=== PATIENT | male | born 1935 | race Caucasian/White ===

== ENCOUNTER 2016-12-03 09:23 | Inpatient (IN) | payer MEDICARE, OTHER ==
[2016-12-03 10:20] LABS: Hematocrit 44 % (42-52); Hemoglobin 15.4 g/dl (14.0-18.0); Mean Corpuscular HGB Conc 35 g/dl (31-36); Mean Corpuscular Hemoglobin 31 pg (27-31); Mean Corpuscular Volume 90 fL (80-94); Red Cell Distribution Width 14 % (10.5-15); White Blood Count 9.9 10^3/ul (3.5-10.8)
[2016-12-03 10:23] LABS: Comments Flag Yes
[2016-12-03 10:30] LABS: Add Diff/Slide Review? Slide Review Added
--- NOTE | 2016-12-03 10:32 | RAD ---
Indication: Nosebleed, hemoptysis. Single frontal view of the chest performed at 0950 hours was reviewed. No prior study is available for comparison.. No mediastinal shift is noted. Heart is of normal size and configuration. Lung desai appear clear. IMPRESSION: NO ACTIVE CARDIOPULMONARY DISEASE IS NOTED.
[2016-12-03 10:36] LABS: Albumin 4.3 g/dL (3.2-5.2); BUN/Creatinine Ratio 20.8 (8-20); Calcium 9.2 mg/dL (8.6-10.3); EGFR Non-African American 70.7 (>60); Potassium 4.2 mmol/L (3.5-5.0); Total Protein 7.3 g/dL (6.4-8.9)
[2016-12-03] MEDS ORDERED: diPHENhydraMINE PO* 25 MG PO ONE (11:37)
[2016-12-03] MEDS ORDERED: Acetaminophen TAB* 325 MG PO PRN (11:37)
--- NOTE | 2016-12-03 12:36 | ED ---
Rodrick Hammond Benjamin, scribed for Manohar Gerber MD on 12/03/16 at 1026 . Throat Pain/Nasal Congestion - HPI Summary HPI Summary: 81yo male who started having left epistaxis since this morning. Pt noted having blisters on tongue since Thursday and was put on steroid yesterday for low platelet count. No CP or SOB. - History of Current Complaint Chief Complaint: EDEpistaxis Time Seen by Provider: 12/03/16 09:28 Hx Obtained From: Patient Onset/Duration: Sudden Onset, Lasting Hours, Still Present Severity: Mild Cough: None - Allergies/Home Medications Allergies/Adverse Reactions: Allergies Allergy/AdvReac Type Severity Reaction Status Date / Time No Known Drug Allergy Allergy none Verified 12/03/16 09:29 PMH/Surg Hx/FS Hx/Imm Hx Cardiovascular History: Reports: Hx Hypertension GI History: Reports: Other GI Disorders - Hernia Sensory History: Reports: Hx Cataracts - Family History Known Family History: Positive: Hypertension Negative: Cardiac Disease, Diabetes - Social History Occupation: Retired Alcohol Use: Occasionally Substance Use Type: Reports: None Smoking Status (MU): Never Smoked Tobacco Review of Systems Constitutional: Negative Eyes: Negative Positive: Epistaxis - left Cardiovascular: Negative Negative: Chest Pain Respiratory: Negative Negative: Shortness Of Breath Gastrointestinal: Negative Genitourinary: Negative Musculoskeletal: Negative Skin: Negative Neurological: Negative Psychological: Normal All Other Systems Reviewed And Are Negative: Yes Physical Exam Triage Information Reviewed: Yes Vital Signs On Initial Exam: Initial Vitals Temp Pulse Resp BP Pulse Ox 97.5 F 70 15 167/100 98 12/03/16 10:55 12/03/16 10:55 12/03/16 10:55 12/03/16 10:55 12/03/16 10:55 Vital Signs Reviewed: Yes Skin: Positive: Warm, Dry, Other - diffuse Petechiae Head/Face: Positive: Normal Head/Face Inspection Eyes: Positive: Normal ENT: Positive: Other - little blood in left nare; blisters on tongue Neck: Positive: Supple, Nontender Respiratory/Lung Sounds: Positive: Clear to Auscultation, Breath Sounds Present Cardiovascular: Positive: RRR Abdomen Description: Positive: Nontender, No Organomegaly, Soft Bowel Sounds: Positive: Present Musculoskeletal: Positive: Normal, Strength/ROM Intact Neurological: Positive: Normal, Sensory/Motor Intact, Alert, Oriented to Person Place, Time, CN Intact II-III Psychiatric: Positive: Normal, Affect/Mood Appropriate Diagnostics - Vital Signs Vital Signs Temp Pulse Resp BP Pulse Ox 12/03/16 10:55 97.5 F 70 15 167/100 98 - Laboratory Lab Results: Lab Results 12/03/16 Range/Units 09:47 Blood Type Pending Antibody Screen Pending Result Diagrams: 12/03/16 10:03 12/03/16 10:03 Lab Statement: Any lab studies that have been ordered have been reviewed, and results considered in the medical decision making process. - Radiology CXR Xray Interpretation: No Acute Changes Radiology Interpretation Completed By: Radiologist - EKG 1009. Cardiac Rate: NL - 70bpm. EKG Interpretation: sinus arrthymia with VA of 285. Inverted T waves on lateral leads. EENT Course/Dx - Course Assessment/Plan: DR BLANKENSHIP SAW PATIENT IN ED AND ADMITTED HIM STABLE - Diagnoses Provider Diagnoses: Acute ITP - Provider Notifications Discussed Care of Patient with: Dr. Blankenship (Oncologist, Dope Pourer) @1010, @ 1058. Instructed by Provider To: Admit As Inpatient Discharge - Discharge Plan Condition: Stable Disposition: ADMITTED TO [facility] The documentation as recorded by the Rodrick fish Benjamin accurately reflects the service I personally performed and the decisions made by me, Manohar Gerber MD.
[2016-12-03 16:53] LABS: Comments Flag Yes; Hematocrit 43 % (42-52); Hemoglobin 14.5 g/dl (14.0-18.0); Mean Corpuscular HGB Conc 34 g/dl (31-36); Mean Corpuscular Hemoglobin 31 pg (27-31); Mean Corpuscular Volume 91 fL (80-94); Mean Platelet Volume 8 um3 (7.4-10.4); Red Blood Count 4.74 10^6/ul (4.0-5.4); Red Cell Distribution Width 13 % (10.5-15); White Blood Count 11.7 10^3/ul (3.5-10.8)
[2016-12-03] MEDS: IMMUNE GLOBULN IV SCH (18:00)
[2016-12-03] MEDS: Saline FLUSH-PERIPHERAL* 10 ML SYRINGE PERIPH SCH ×2 (18:23→21:29)
--- NOTE | 2016-12-03 18:29 | HP ---
HISTORY AND PHYSICAL: DATE OF ADMISSION: 12/03/16 REASON FOR ADMISSION: Thrombocytopenia and epistaxis. HISTORY OF PRESENT ILLNESS: An 81-year-old male generally healthy. Thursday evening, he was eating a pork chop and noted a blood blister on his tongue. He did not think much of it. The next day on Thursday, he had 3 to 4 blood spots on his tongue. He went to see Dr. Castillo, Family [facility] at [facility] and was sent to [place] for wildlife veterinarian down at [place]. He was seen yesterday and had extensive blood work done. He was started on dexamethasone 4 mg p.o. daily for 4 days. He took the pills yesterday evening and then took them again this morning. This morning, he subsequently developed nosebleed and went to the [facility] Emergency Room. On presentation, he had a platelet count of 6. He was sent to [facility] and has a platelet count of 2. He otherwise reports feeling well. No recent illness, no fevers, chills, or night sweats, energy has been good, no shortness of breath, chest pain, palpitations, hematuria, change in bowel function. He has noted red spots along his arms and legs. PAST MEDICAL HISTORY: 1. Hypertension. 2. Osteoarthritis. PAST SURGICAL HISTORY: Hernia repair x2. MEDICATIONS: 1. Benicar, he believes 40 mg a day. 2. Metoprolol 100 mg a day. 3. Tylenol twice a day for arthritis. ALLERGIES: None. FAMILY HISTORY: No real illnesses run in his family, no problems with blood disease. 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 He is . He has one stepchild. He drinks occasionally. He smoked until 12 years ago and stopped. He remains very active. REVIEW OF SYSTEMS: As noted above, otherwise 14-point review is negative. PHYSICAL EXAMINATION VITAL SIGNS: Temperature 97.5, BP 167/100, respirations 15, pulse 70, sat 98%. HEENT: He has epistaxis, several blood vessels on his tongue. No other oral mucosal ecchymosis. NECK: No cervical or supraclavicular lymphadenopathy. LUNGS: Clear to auscultation bilaterally. HEART: Regular rhythm. S1, S2. No murmurs, rubs or gallops. ABDOMEN: No spleen. Good bowel sounds, nontender, nondistended. SKIN: Multiple bruises from his IV site. He has diffuse petechiae in both legs , both arms. NEUROLOGIC: Alert and oriented x3, nonfocal. Normal speech pattern. Normal affect. NODES: No peripheral lymphadenopathy. DIAGNOSTIC/LABORATORY DATA: He has a hemoglobin 15.4, MCV 90, white count 9.9 , platelet count of 2000, and the differential is 94% neutrophils. Review of manual blood film shows normal red blood cell morphology, no evidence of microangiopathic hemolysis. He has normal white blood cells and I could not find any platelets to review. Chemistry show creatinine 1.01, glucose slightly elevated at 252. Normal LFTs, albumin. He has normal PT, PTT. Chest x-ray is negative. ASSESSMENT AND PLAN: An 81-year-old male comes in with marked thrombocytopenia. 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 Based on starting dexamethasone 40 mg daily, I suspect this was the conclusion of the wildlife veterinarian he saw as an outpatient. Given the degree of thrombocytopenia as well as epistaxis, he needs to be admitted to the hospital. 1. We will give 1 unit of single donor platelets now and recheck the platelet count at 4 p.m. Re-transfuse if necessary. 2. IVIG, Gammagard, 1000 mg per kilogram IV daily x2. 3. He took 2 days of dexamethasone, continue dexamethasone tomorrow and Thursday. 4. Discuss long-term outcome with idiopathic thrombocytopenic purpura. Two- thirds of patients respond to initial therapy, one-third will have a long-term response, all other patients need to go on to either rituximab or splenectomy. 5. Mildly elevated glucose, from dexamethasone and we will follow. 6. Continue his metoprolol and hold the Benicar for hypertension. We will follow blood pressure. 7. No deep vein thrombosis prophylaxis given thrombocytopenia. Start with platelet count over 50,000. 8. We will continue his MiraLAX and his Tylenol. We will give Tylenol and Benadryl for IVIG. 9. Check urinalysis for hematuria. He will be followed in the hospital and then discharged when the platelet count is stabilized, followup needs to be with us or with the wildlife veterinarian down at [place]. CC: Dr. Castillo* [id number]/[facility] #: [id number] [facility]
[2016-12-03] MEDS ORDERED: Polyethylene Glycol 3350* 17 GM PACKET PO PRN (20:00)
[2016-12-03] MEDS: traZODone TAB* 50 MG TAB PO SCH (21:55)
[2016-12-04] MEDS: Saline FLUSH-PERIPHERAL* 10 ML SYRINGE PERIPH SCH ×3 (04:40→23:54)
[2016-12-04 06:35] LABS: Hematocrit 36 % (42-52); Hemoglobin 12.2 g/dl (14.0-18.0); Mean Corpuscular HGB Conc 34 g/dl (31-36); Mean Corpuscular Hemoglobin 31 pg (27-31); Mean Corpuscular Volume 92 fL (80-94); Mean Platelet Volume 11 um3 (7.4-10.4); Red Blood Count 3.87 10^6/ul (4.0-5.4); Red Cell Distribution Width 13 % (10.5-15); White Blood Count 12.1 10^3/ul (3.5-10.8)
[2016-12-04 06:36] LABS: Comments Flag Yes
[2016-12-04 06:44] LABS: Albumin 3.3 g/dL (3.2-5.2); BUN/Creatinine Ratio 34.2 (8-20); Calcium 8.4 mg/dL (8.6-10.3); EGFR African American 120.8 (>60); EGFR Non-African American 93.9 (>60); Globulin 4.2 g/dL (2-4); Total Bilirubin 0.8 mg/dL (0.2-1.0); Total Protein 7.5 g/dL (6.4-8.9)
[2016-12-04] MEDS: Dexamethasone TAB* 4 MG PO SCH (09:37)
[2016-12-04] MEDS: Metoprolol Succinate XL TAB* 100 MG PO SCH (09:40)
--- NOTE | 2016-12-04 09:58 | PN ---
Progress Note - Progress Note SOAP: Subjective: [Had a bloody nose lastr night.placed tissue in left nare which stopped .Denies SOB or carmina pain.Denies fever or chills,headaches ,neurofocal sxms.] Objective: [Heent -left nare Lungs -clear after deep cough COR- RRR Abdomen-+bs X quads, soft, NT EXT- scatered petechia BLE neuro - no focal defecits Allergies No Known Drug Allergy Allergy (Verified 12/03/16 09:29) none Vital Signs 12/03/16 12/03/16 12/03/16 10:55 13:10 13:20 Temperature 97.5 F 97.3 F 97.3 F Pulse Rate 70 74 74 Respiratory 15 18 Rate Blood Pressure 167/100 190/92 (mmHg) O2 Sat by Pulse 98 100 100 Oximetry 12/03/16 12/03/16 12/03/16 14:50 15:05 15:50 Temperature 98.3 F 98.1 F 98.4 F Pulse Rate 80 74 72 Respiratory 16 16 16 Rate Blood Pressure 153/79 140/85 151/75 (mmHg) O2 Sat by Pulse 98 100 Oximetry 12/03/16 12/03/16 12/03/16 16:51 17:49 17:56 Temperature 97.5 F Pulse Rate 82 Respiratory 16 16 Rate Blood Pressure 175/111 178/94 (mmHg) O2 Sat by Pulse 100 Oximetry 12/03/16 12/03/16 12/03/16 18:18 18:29 18:35 Temperature 97.7 F 98.1 F Pulse Rate 78 89 Respiratory 16 16 16 Rate Blood Pressure 170/88 170/78 (mmHg) O2 Sat by Pulse 99 98 Oximetry 12/03/16 12/03/16 12/03/16 18:50 18:51 19:10 Temperature 98.2 F 98.6 F Pulse Rate 88 89 Respiratory 16 18 16 Rate Blood Pressure 178/106 175/103 (mmHg) O2 Sat by Pulse 98 98 Oximetry 12/03/16 12/03/16 12/03/16 19:30 19:45 20:00 Temperature 98.8 F 98.8 F Pulse Rate 88 84 Respiratory 18 18 18 Rate Blood Pressure 155/98 174/78 (mmHg) O2 Sat by Pulse 98 97 Oximetry 12/03/16 12/03/16 12/03/16 20:05 20:25 20:45 Temperature 98.6 F 98.1 F 98 F Pulse Rate 83 80 76 Respiratory 18 18 18 Rate Blood Pressure 178/82 178/88 168/80 (mmHg) O2 Sat by Pulse 98 97 96 Oximetry 12/03/16 12/03/16 12/03/16 21:05 21:25 21:50 Temperature 98 F 98.4 F 98.4 F Pulse Rate 75 75 78 Respiratory 18 18 18 Rate Blood Pressure 178/84 174/82 175/84 (mmHg) O2 Sat by Pulse 96 96 97 Oximetry 12/03/16 12/03/16 12/03/16 22:15 22:35 22:55 Temperature 98.2 F 98.3 F 98.1 F Pulse Rate 76 72 69 Respiratory 18 18 18 Rate Blood Pressure 174/90 174/82 172/80 (mmHg) O2 Sat by Pulse 95 96 96 Oximetry 12/03/16 12/03/16 12/04/16 23:15 23:40 00:00 Temperature 98.2 F 98.1 F 98 F Pulse Rate 73 65 75 Respiratory 18 18 18 Rate Blood Pressure 178/82 176/90 170/80 (mmHg) O2 Sat by Pulse 96 96 98 Oximetry 12/04/16 12/04/16 12/04/16 02:39 04:08 07:37 Temperature 97.2 F Pulse Rate 72 81 Respiratory 16 18 Rate Blood Pressure 151/87 171/94 (mmHg) O2 Sat by Pulse 98 97 100 Oximetry ] Laboratory Results - last 24 hr 12/03/16 12/03/16 12/03/16 09:47 10:03 10:03 WBC 9.9 RBC 4.90 Hgb 15.4 Hct 44 MCV 90 MCH 31 MCHC 35 RDW 14 Plt Count 2 L* MPV Neut % (Auto) 93.4 H Lymph % (Auto) 6.2 L [place] % (Auto) 0.3 L Eos % (Auto) 0 Baso % (Auto) 0.1 Absolute Neuts (auto) 9.3 H Absolute Lymphs (auto) 0.6 L Absolute Monos (auto) 0 Absolute Eos (auto) 0 Absolute Basos (auto) 0 Absolute Nucleated RBC 0 Nucleated RBC % 0 Hem Pathologist Commnt INR (Anticoag Therapy) 1.02 APTT 27.3 Sodium Potassium Chloride Carbon Dioxide Anion Gap BUN Creatinine Est GFR ( Amer) Est GFR (Non-Af Amer) BUN/Creatinine Ratio Glucose Calcium Total Bilirubin AST ALT Alkaline Phosphatase Lactate Dehydrogenase Total Protein Albumin Globulin Albumin/Globulin Ratio Vitamin B12 Blood Type A Negative Antibody Screen Negative 12/03/16 12/03/16 12/04/16 10:03 16:35 05:41 WBC 11.7 H RBC 4.74 Hgb 14.5 Hct 43 MCV 91 MCH 31 MCHC 34 RDW 13 Plt Count 16 L MPV 8 Neut % (Auto) 88.5 H Lymph % (Auto) 9.0 L [place] % (Auto) 2.4 Eos % (Auto) 0 Baso % (Auto) 0.1 Absolute Neuts (auto) 10.4 H Absolute Lymphs (auto) 1.1 Absolute Monos (auto) 0.3 Absolute Eos (auto) 0 Absolute Basos (auto) 0 Absolute Nucleated RBC 0.01 Nucleated RBC % 0.1 Hem Pathologist Commnt INR (Anticoag Therapy) APTT Sodium 135 131 L Potassium 4.2 4.0 Chloride 101 102 Carbon Dioxide 23 24 Anion Gap 11 5 BUN 21 27 H Creatinine 1.01 0.79 Est GFR ( Amer) 91.0 120.8 Est GFR (Non-Af Amer) 70.7 93.9 BUN/Creatinine Ratio 20.8 H 34.2 H Glucose 252 H 199 H Calcium 9.2 8.4 L Total Bilirubin 1.00 0.80 AST 22 21 ALT 20 19 Alkaline Phosphatase 38 33 L Lactate Dehydrogenase 238 Total Protein 7.3 7.5 Albumin 4.3 3.3 Globulin 3.0 4.2 H Albumin/Globulin Ratio 1.4 0.8 L Vitamin B12 521 Blood Type Antibody Screen 12/04/16 05:44 WBC 12.1 H RBC 3.87 L Hgb 12.2 L Hct 36 L MCV 92 MCH 31 MCHC 34 RDW 13 Plt Count 5 L* D MPV 11 H Neut % (Auto) 84.5 H Lymph % (Auto) 9.2 L [place] % (Auto) 6.2 Eos % (Auto) 0 Baso % (Auto) 0.1 Absolute Neuts (auto) 10.2 H Absolute Lymphs (auto) 1.1 Absolute Monos (auto) 0.7 Absolute Eos (auto) 0 Absolute Basos (auto) 0 Absolute Nucleated RBC 0 Nucleated RBC % 0 Hem Pathologist Commnt INR (Anticoag Therapy) APTT Sodium Potassium Chloride Carbon Dioxide Anion Gap BUN Creatinine Est GFR ( Amer) Est GFR (Non-Af Amer) BUN/Creatinine Ratio Glucose Calcium Total Bilirubin AST ALT Alkaline Phosphatase Lactate Dehydrogenase Total Protein Albumin Globulin Albumin/Globulin Ratio Vitamin B12 Blood Type Antibody Screen Assessment: [ITP -Contnue IVIG day 2 and steroids Watch for signs of bleeding HTN-continue meds Watch BS FEN -continue same diet] Plan: [As above Spent 15minutes discussing options of care ; initial treatment ,splenectomy, Rituxan ,etc. Cautioned pt. re signs of bleeding ]
[2016-12-04 11:05] LABS: Urine Bacteria Absent (Absent); Urine Bilirubin Negative (Negative); Urine Glucose 3+(>=500 mg/dL) (Negative); Urine Nitrite Negative (Negative)
[2016-12-04] MEDS: IMMUNE GLOBULN IV SCH (13:59)
[2016-12-04] MEDS ORDERED: OLMESARTAN 5 MG PO SCH (14:00)
[2016-12-04] MEDS: traZODone TAB* 50 MG TAB PO SCH (20:38)
[2016-12-04] MEDS ORDERED: amLODIPine TAB* 5 MG PO ONE (21:00)
[2016-12-05] MEDS: Saline FLUSH-PERIPHERAL* 10 ML SYRINGE PERIPH SCH ×3 (04:30→20:49)
[2016-12-05 06:30] LABS: Hematocrit 38 % (42-52); Hemoglobin 12.9 g/dl (14.0-18.0); Mean Corpuscular HGB Conc 34 g/dl (31-36); Mean Corpuscular Hemoglobin 31 pg (27-31); Mean Corpuscular Volume 92 fL (80-94); Mean Platelet Volume 10 um3 (7.4-10.4); Red Cell Distribution Width 13 % (10.5-15); White Blood Count 11.7 10^3/ul (3.5-10.8)
[2016-12-05 06:31] LABS: Comments Flag Yes
[2016-12-05 07:09] LABS: Albumin 3.6 g/dL (3.2-5.2); BUN/Creatinine Ratio 27.4 (8-20); Calcium 9.2 mg/dL (8.6-10.3); EGFR African American 112.5 (>60); EGFR Non-African American 87.5 (>60); Globulin 6.5 g/dL (2-4); Potassium 4.1 mmol/L (3.5-5.0); Total Bilirubin 1.1 mg/dL (0.2-1.0); Total Protein 10.1 g/dL (6.4-8.9)
[2016-12-05] MEDS: Metoprolol Succinate XL TAB* 100 MG PO SCH (08:48)
[2016-12-05] MEDS: Valsartan TAB* 160 MG PO SCH (08:48)
[2016-12-05] MEDS: Dexamethasone TAB* 4 MG PO SCH (08:48)
--- NOTE | 2016-12-05 09:18 | PN ---
Progress Note - Progress Note SOAP: Subjective: []Better. Bruising and bleeding stopped, feels like is getting better. No difficulty with IVIG or steroids. Acetaminophen (Tylenol Tab*) 650 mg PO Q6H PRN PRN Reason: PAIN Last Admin: 12/03/16 16:52 Dose: 650 mg Dexamethasone (Decadron Tab*) 40 mg PO DAILY ELAINE Stop: 12/05/16 23:59 Last Admin: 12/05/16 08:48 Dose: 40 mg Metoprolol Succinate (Toprol Xl Tab*) 100 mg PO DAILY ELAINE Last Admin: 12/05/16 08:48 Dose: 100 mg Polyethylene Glycol/Electrolytes (Miralax*) 17 gm PO DAILY PRN PRN Reason: CONSTIPATION Sodium Chloride ( Peripheral Saline Flush*) 10 ml PERIPH Q8H ELAINE Last Admin: 12/05/16 04:30 Dose: 10 ml Trazodone HCl (Desyrel Tab*) 50 mg PO BEDTIME ELAINE Last Admin: 12/04/16 20:38 Dose: 50 mg Valsartan (Diovan Tab*) 320 mg PO DAILY ELAINE PRN Reason: Protocol Last Admin: 12/05/16 08:48 Dose: 320 mg Objective: [] Vital Signs Temp Pulse Resp BP Pulse Ox 97.6 F 58 16 189/85 98 12/04/16 23:56 12/04/16 23:56 12/04/16 23:56 12/04/16 23:56 12/04/16 23:56 HEENT - no epistaxis. No packing. Still blisters oral mucosa. CTA RRR S1S2 +BS, NT/ND Skin looks better, no fresh bruising. Assessment: []ITP improved after steroids and IVIG. He is feeling better Plan: []1. Follow one additional day and DC tomorrow assuming further rise in placates. 2. Hold Bhanu Perezc for HTN
[2016-12-05] MEDS ORDERED: Furosemide TAB* 20 MG PO ONE (09:19)
[2016-12-05] MEDS: traZODone TAB* 50 MG TAB PO SCH (20:49)
[2016-12-06] MEDS: Saline FLUSH-PERIPHERAL* 10 ML SYRINGE PERIPH SCH ×2 (05:39→11:19)
[2016-12-06 07:55] VITALS: BP 186/96
[2016-12-06] MEDS: Valsartan TAB* 160 MG PO SCH (07:57)
[2016-12-06] MEDS: Metoprolol Succinate XL TAB* 100 MG PO SCH (07:57)
[2016-12-06 08:40] LABS: Hematocrit 39 % (42-52); Hemoglobin 13.7 g/dl (14.0-18.0); Mean Corpuscular HGB Conc 35 g/dl (31-36); Mean Corpuscular Hemoglobin 31 pg (27-31); Mean Corpuscular Volume 89 fL (80-94); Mean Platelet Volume 10 um3 (7.4-10.4); Red Blood Count 4.41 10^6/ul (4.0-5.4); Red Cell Distribution Width 13 % (10.5-15); White Blood Count 12.4 10^3/ul (3.5-10.8)
[2016-12-06 08:42] LABS: Comments Flag Yes
--- NOTE | 2016-12-06 09:06 | PN ---
Progress Note - Progress Note SOAP: DISCHARGE NOTE Subjective: []Doing well and no more bruising, feels great. Ready to go home. Walking well, has BM, no SOB and no fever. Acetaminophen (Tylenol Tab*) 650 mg PO Q6H PRN PRN Reason: PAIN Last Admin: 12/03/16 16:52 Dose: 650 mg Metoprolol Succinate (Toprol Xl Tab*) 100 mg PO DAILY ELAINE Last Admin: 12/06/16 07:57 Dose: 100 mg Polyethylene Glycol/Electrolytes (Miralax*) 17 gm PO DAILY PRN PRN Reason: CONSTIPATION Sodium Chloride ( Peripheral Saline Flush*) 10 ml PERIPH Q8H ELAINE Last Admin: 12/06/16 05:39 Dose: Not Given Trazodone HCl (Desyrel Tab*) 50 mg PO BEDTIME ELAINE Last Admin: 12/05/16 20:49 Dose: 50 mg Valsartan (Diovan Tab*) 320 mg PO DAILY ELAINE PRN Reason: Protocol Last Admin: 12/06/16 07:57 Dose: 320 mg Objective: [] Vital Signs Temp Pulse Resp BP Pulse Ox 97.4 F 72 16 186/96 100 12/06/16 07:40 12/06/16 07:40 12/06/16 07:59 12/06/16 07:40 12/06/16 07:40 HEENT - mucosa moist, healing CTA RRR S1S2 BS+, NT ND Skin improved, no new bruising. Laboratory Results - last 24 hr 12/06/16 08:30 WBC 12.4 H RBC 4.41 Hgb 13.7 L Hct 39 L MCV 89 MCH 31 MCHC 35 RDW 13 Plt Count 50 L D MPV 10 Neut % (Auto) 84.3 H Lymph % (Auto) 8.9 L [place] % (Auto) 6.6 Eos % (Auto) 0 Baso % (Auto) 0.2 Absolute Neuts (auto) 10.5 H Absolute Lymphs (auto) 1.1 Absolute Monos (auto) 0.8 Absolute Eos (auto) 0 Absolute Basos (auto) 0 Absolute Nucleated RBC 0 Nucleated RBC % 0 Assessment: []ITP and platlets are 50,000 post IVIG and Prednisone. HTN second to steroids and IVIG Plan: []1. D/C home 2. Continue home medications 3. Follow up Hematology at [place] on Thursday
--- NOTE | 2016-12-06 12:54 | DS ---
DISCHARGE SUMMARY: DATE OF ADMISSION: 12/03/16 DATE OF DISCHARGE: 12/06/16 DISCHARGE DIAGNOSES: 1. Idiopathic thrombocytopenia with severe thrombocytopenia. 2. Hypertension. HOSPITAL COURSE: Presented to the emergency room after initially presenting at [place] with a platelet count of 2000. He had epistaxis, oral mucosal bleeding , and diffuse bruising and petechia. Past medical history significant only for hypertension. He had been seen for thrombocytopenia several days earlier by road marker at [place] and started on dexamethasone 40 mg p.o. daily for 4 days , presumably ITP. His CBC showed marked thrombocytopenia and was otherwise unremarkable. Manual blood count showed normal white blood cell and red blood cell morphology, slight leukocytosis attribute to use of dexamethasone. We could not find platelets to evaluate platelet morphology. He was admitted and continued on his 4 days of dexamethasone, which was completed yesterday. He was given IVIG with Gammagard 1 g/kg IV daily for 2 days. He was transfused one unit of platelets for the platelet count of 2000. He bumped to 16,000 after the transfusion and back down to 5000 on 12/04/16, had a second day of Gammagard, third day of dexamethasone and on 12/05/16 [place] [address], today 50,000. Feels great, bruising is gone, now feels better. Course complicated by hypertension, but his Benicar had been held that attribute that to the steroids and the IVIG. DISCHARGE MEDICATIONS: 1. He will continue metoprolol 50 mg b.i.d. 2. Benicar 40 mg daily. FOLLOWUP: Followup will be in [address] marker down at [place] and I instructed him to see Dr. Castillo early next week as well. No followup is scheduled thus at this time, as his road marker in [place] is more convenient for him. We are happy to see him anytime in the future if we can help. CC: Dr. Castillo * [id number]/[facility] #: [id number] [facility]
== END 2016-12-06 11:30 | disposition home or self-care (01) | DRG 813 ==
LOC: ED 09:23 → MED 11:31
PROVIDERS: ADMIT Internal Medicine Hematology & Oncology; ATTEND Internal Medicine Hematology & Oncology
PROC: 3E033WL Introduction of Immunosuppressive into Peripheral Vein, Percutaneous (ICD-10-PCS; principal; 2016-12-03)
PROC: 30233R1 Transfusion of Nonautologous Platelets into Peripheral Vein, Percutaneous Approach (ICD-10-PCS; 2016-12-03)
DX: D69.3 Immune thrombocytopenic purpura (principal); I10 Essential (primary) hypertension; D72.829 Elevated white blood cell count, unspecified; T38.0X5A Adverse effect of glucocorticoids and synthetic analogues, initial encounter; H26.9 Unspecified cataract; Z82.49 Family history of ischemic heart disease and other diseases of the circulatory system; M19.90 Unspecified osteoarthritis, unspecified site; Z87.891 Personal history of nicotine dependence; R73.9 Hyperglycemia, unspecified; T50.Z15A Adverse effect of immunoglobulin, initial encounter
CPT/HCPCS: 36415; 71010; 80053; 81003; 81015; 82607; 83615; 85025; 85060; 85610; 85730; 86850; 86900; 86901; 93005; 99223; 99232; 99238; A9270-GY; J1568; J8540; P9035

== ENCOUNTER 2019-02-17 16:46 | Inpatient (IN) | payer MEDICARE, OTHER ==
--- NOTE | 2019-02-17 17:25 | ED ---
Neurological HPI - HPI Summary HPI Summary: This patient is a 83 year old M transferred from [facility] via EMS to [facility] for a further evaluation of a stroke vs mass on CT. A few days ago he suffered a complete loss of vision, which has since alleviated, after he started taking a new medication for blood pressure. This morning at 09:00, he had complete loss of vision again for about an hour and presented to [place] ED. Patient also had an NH earlier this week and was seen at [facility]. No operation or procedures were done for this NH, per pt. His vision losses started after the NH. Patient denies headache currently, CP, dizziness, no vision changes currently. and SOB. No PMHx of kidney failure. Pt is vague about historical details. Records from [facility]. Pt was seen by RUPA Saldana at , and discussed care with Dr. Beth prior to transfer. Vital signs while in room: HR 66 bpm, BP 156/87, O2 sat 93%. Home Medications Medication Instructions Recorded Confirmed Type Metoprolol Tartrate TAB* 50 mg PO BID 12/03/16 02/17/19 History [Lopressor TAB*] Aspirin EC TAB* [Ecotrin EC Low 81 mg PO DAILY 02/17/19 02/17/19 History Dose 81 MG*] Atorvastatin* [Lipitor*] 40 mg PO BEDTIME 02/17/19 02/17/19 History Carvedilol TAB* [Coreg TAB*] 25 mg PO BID WITH MEALS 02/17/19 02/17/19 History Clopidogrel TAB* [Plavix TAB*] 75 mg PO DAILY 02/17/19 02/17/19 History Lisinopril TAB* [Prinivil TAB*] 10 mg PO DAILY 02/17/19 02/17/19 History Olmesartan (NF) [Benicar (NF)] 40 mg PO DAILY 02/17/19 02/17/19 History metFORMIN* [Glucophage 500 MG TAB 500 mg PO BID 02/17/19 02/17/19 History *] - History of Current Complaint Chief Complaint: EDNeurologicalDeficit Stated Complaint: STROKE LIKE SYMPTOMS PER EMS Time Seen by Provider: 02/17/19 17:00 Hx Obtained From: Patient, Medical Records - and RUPA Saldana from , Other: - Dr. Beth Onset/Duration: Sudden Onset, Started hours ago, Resolved Timing: Intermittent Episodes Lasting: - 1 hour Onset Severity: Moderate Current Severity: None Pain Intensity: 0 Pain Scale Used: 0-10 Numeric Character: Dizzy - Denies, Visual Changes - Intermittent loss of vision for hour -long episodes. No vision changes currently., Other: - Denies headache, CP, and SOB. Aggravating: Nothing Alleviating: Nothing Associated Signs and Symptoms: Positive: Nothing - no headache, chest pain, dizziness, SOB or visual symptoms at this time TPA Considered: No - outside TPA window - Additional Pertinent History Primary Care Physician: MARIA LUZ - Allergy/Home Medications Allergies/Adverse Reactions: Allergies Allergy/AdvReac Type Severity Reaction Status Date / Time No Known Allergies Allergy Verified 02/19/19 08:26 Home Medications: Home Medications Aspirin EC TAB* [Ecotrin EC Low Dose 81 MG*] 81 mg PO DAILY 02/17/19 [History Confirmed 02/17/19] Atorvastatin* [Lipitor 40 MG*] 40 mg PO BEDTIME 02/17/19 [History Confirmed ] Carvedilol TAB* [Coreg TAB*] 25 mg PO BID WITH MEALS 02/17/19 [History Confirmed 02/17/19] Lisinopril TAB* [Prinivil TAB 10 MG*] 10 mg PO DAILY 02/17/19 [History Confirmed 02/17/19] metFORMIN* [Glucophage 500 MG TAB *] 500 mg PO BID 02/17/19 [History Confirmed 02/17/19] PMH/Surg Hx/FS Hx/Imm Hx Previously Healthy: No Endocrine/Hematology History: Reports: Hx Diabetes - on no meds for DM pt states Cardiovascular History: Reports: Hx Hypertension, Hx Myocardial Infarction - 1 week ago per pt Respiratory History: Reports: Hx Chronic Obstructive Pulmonary Disease (COPD) - states his doctor said 20 years ago he had COPD but his doctor says he has GI History: Reports: Other GI Disorders - Hernia Musculoskeletal History: Reports: Hx Arthritis - in bilateral shoulders, takes tylenol bid Sensory History: Reports: Hx Contacts or Glasses - glasses Denies: Hx Cataracts - had cataract surgery a few years ago, he cant remember when, Hx Eye Injury, Hx Eye Prosthesis, Hx Glaucoma, Hx Legally Blind, Hx Macular Degeneration, Hx Vision Problem, Hx Deafness, Hx Hearing Aid, Hx Hearing Problem, Other Sensory Impairments Opthamlomology History: Reports: Hx Contacts or Glasses - glasses Denies: Hx Cataracts - had cataract surgery a few years ago, he cant remember when, Hx Eye Injury, Hx Eye Prosthesis, Hx Glaucoma, Hx Legally Blind, Hx Macular Degeneration, Hx Vision Problem, Other Sensory Impairments - Cancer History Cancer Type, Location and Year: skin cancer: had lesions removed on R shoulder and forehead - Surgical History Surgery Procedure, Year, and Place: bilateral inguinal hernia repair, he does not know when. bilateral cataract surgery Hx Anesthesia Reactions: No Infectious Disease History: No Infectious Disease History: Denies: Traveled Outside the [place] in Last 30 Days - Family History Known Family History: Positive: Hypertension Negative: Cardiac Disease, Diabetes - Social History Alcohol Use: Occasionally Substance Use Type: Reports: None Smoking Status (MU): Former Smoker Length of Time of Smoking/Using Tobacco: quit smoking 15 years ago\ Have You Smoked in the Last Year: No Review of Systems Constitutional: Negative Positive: Other - Intermittent complete loss of vision. Denies vision changes currently. Negative: Chest Pain Negative: Shortness Of Breath Gastrointestinal: Negative Positive: no symptoms reported Musculoskeletal: Negative Skin: Negative Neurological: Other - stroke vs mass on [facility] from [facility]. Denies dizziness. Negative: Headache Psychological: Normal All Other Systems Reviewed And Are Negative: Yes Physical Exam - Summary Physical Exam Summary: Appearance: Ill-appearing, no pain distress, well-nourished Skin: Warm, color reflects adequate perfusion, dry Head: Normal Head/Face inspection, atraumatic Eyes: Conjunctiva clear, PERRL, EOMI, no nystagmus, vision intact ENT: Normal inspection Neck: Supple, no nodes, no JVD Respiratory: Lungs clear, normal breath sounds, no respiratory distress Cardio: RRR, No murmur, pulses normal, brisk capillary refill Abdomen: Soft, nontender Bowel sounds: Present Musculoskeletal: Strength Intact/ROM intact, no calf tenderness, no edema. Psychological: Normal Neuro: NIH zero, pt alert Ox3 Triage Information Reviewed: Yes Vital Signs On Initial Exam: Initial Vitals Temp Pulse Resp BP Pulse Ox 99 F 67 18 156/87 95 02/17/19 16:53 02/17/19 16:53 02/17/19 16:53 02/17/19 16:53 02/17/19 16:53 Vital Signs Reviewed: Yes Diagnostics - Vital Signs Vital Signs Temp Pulse Resp BP Pulse Ox 02/17/19 16:53 99 F 67 18 156/87 95 - Laboratory Result Diagrams: 02/23/19 06:03 02/23/19 06:03 Lab Statement: Any lab studies that have been ordered have been reviewed, and results considered in the medical decision making process. - Radiology Chest X-Ray Radiology Interpretation Completed By: Radiologist Summary of Radiographic Findings: 22:27 - Right middle lobe infiltrate. Pending official report. - CT Head CTA CT Interpretation Completed By: Radiologist Summary of CT Findings: 18:33. 1. There is an abrupt thrombotic occlusion within the P1 segment of the left. posterior cerebral artery extending for a 3 mm length. There is reconstitution. distal to this. There is a second short segment occlusion in left P2 branch. peripheral to this. 2. There are corresponding low attenuation changes within the left occipital. lobe suggesting developing infarction. No hemorrhage is seen however the. presence of contrast could obscure small bleed. 3. Limited atherosclerosis elsewhere with no other documented occlusion or. flow-limiting lesion. ED Physician has reviewed this imaging report. - EKG 1 Cardiac Rate: NL - 63 BPM EKG Rhythm: Sinus Rhythm ST Segment: Non-Specific Ectopy: None EKG Comparison: No Significant Change - Compared with 12/03/2017 Summary of EKG Findings: First degree AV block. Normal IVCT. Normal QTc. Left axis (minus 21). Minimal ST elevation, V1 V2. Downsloping and inverting Ts V4- V6. Discussed this EKG with Dr. Angel Jesus. Not a STEMI. NIH Scale - NIH Scale Level of Consciousness: Alert/Keenly Responsive Ask Patient the Month and His/Her Age: Both Correct Ask Pt to Open/Close Eyes and Regional Sales Representative/Release Non-Paretic Hand: Both Correctly Best Gaze (Only Horizontal Eye Movement): Normal Visual Field Testing: No Visual Loss Facial Paresis-Pt to Smile & Close Eyes or Grimace Symmetry: Normal/Symmetrical Motor Function - Right Arm: No Drift-Holds 10 Seconds Motor Function - Left Arm: No Drift-Holds 10 Seconds Motor Function - Right Leg: No Drift-Holds 10 Seconds Motor Function - Left Leg: No Drift-Holds 10 Seconds Limb Ataxia-Must be out of Proportion to Weakness Present: Absent Sensory (Use Pinprick to Test Arms/Legs/Trunk/Face): Normal Best Language (Describe Picture, Name Items): No Aphasia Dysarthria (Read Several Words): Normal Extinction and Inattention: No Abnormality Total Score: 0 Re-Evaluation - Re-Evaluation 1 Re-Evaluation Time: 20:15 Change: Unchanged Comment: Updated the patient of my consultations up to this point. Vitals: HR 57 bpm, BP 103/67, O2 sat 92%. Course/Dx - Course Course Of Treatment: Patient presented with bilateral blindness onset this morning at 09:00. [facility] CT shows stroke vs mass. Sent for CTA under code conditions. Aware of troponin 0.04 at 18:50. Dr. Beth consulted upon pt's arrival. Telestroke consult, Dr. Doherty agrees no TPA. Dr. Doherty recommended neurosurgical interventional consult. Dr. Goldsmith at [facility], states pt is not an interventional candidate. Pt had reported recent NH hospitalized at [facility]. EKG done in ED discussed with Dr. Angel Jesus, not a STEMI. Dr. Jordan admitted the pt. - Differential Dx Differential Diagnoses Neuro: Positive: Cerebrovascular Accident, Intracranial Bleed, Metastatic Disease, Transient Ischemic Attack - Diagnoses Provider Diagnoses: Stroke, Pneumonia - Physician Notifications Discussed Care Of Patient With: Tre Doherty - Neurology from [facility] Time Discussed With Above Provider: 19:08 Instructed by Provider To: Other - Recommends speaking to an interventional neurosurgeon. Transfer center is now paging Dr. Goldsmith. - Critical Care Time Critical Care Time: 30-74 min Discharge - Sign-Out/Discharge Documenting (check all that apply): Patient Departure - admit All imaging exams completed and their final reports reviewed: No - Discharge Plan Condition: Guarded Disposition: ADMITTED TO [facility] - Billing Disposition and Condition Condition: GUARDED Disposition: Admitted to [facility] - Attestation Statements Document Initiated by Scribe: Yes Documenting Scribe: Konrad Daniel Provider For Whom Scribe is Documenting (Include Credential): Lata Martinez MD Scribe Attestation: Konrad Hammond, farhaded for Lata Martinez MD on 02/25/19 at 0203. Scribe Documentation Reviewed: Yes Provider Attestation: The documentation as recorded by the Konrad fish accurately reflects the service I personally performed and the decisions made by , Lata Martinez MD Status of Scribe Document: Viewed Consult Consult: 19:20 - Dr. Beth, neurology, called back and we discussed the best disposition for the patient. 19:24 - Dr. Goldsmith says the patient is not a candidate for interventional clot retrieval. 19:55 - Dr. Angel Jesus,cardiology, says that it is not a STEMI. 20:03 - Dr. Elroy Jordan, hospitalist, has agreed to admit the patient. Pt does not need the ICU at this time.
[2019-02-17] MEDS ORDERED: Iodixanol* (CONTRAST) 320 MG/ML 100 ML SDV IV ONE (17:34)
[2019-02-17 17:57] LABS: ABS Basophils 0 10^3/ul (0-0.2); ABS Eosinophils 0 10^3/ul (0-0.6); ABS Lymphocytes 0.9 10^3/ul (1.0-4.8); ABS Monocytes 0.1 10^3/ul (0-0.8); ABS Neutrophils 7.3 10^3/ul (1.5-7.7); ABS Nucleated RBC 0 10^3/ul; Eosinophil % 0.2 %; Hematocrit 37 % (36-46); Hemoglobin 12.8 g/dL (14.0-18.0); Mean Corpuscular HGB Conc 34 g/dL (31-36); Mean Corpuscular Hemoglobin 31 pg (27-31); Mean Corpuscular Volume 89 fL (80-94); Mean Platelet Volume 8.7 fL (7.4-10.4); Nucleated Red Blood Cells % 0; Platelet Count 194 10^3/uL (150-450); Red Blood Count 4.19 10^6 /uL (4.18-5.48); Red Cell Distribution Width 13 % (10.5-15); White Blood Count 8.4 10^3/uL (3.5-10.8)
[2019-02-17 18:03] LABS: Activated Partial Thrombo Time 31.4 seconds (26.0-36.3); INR 1.24 (0.77-1.02)
[2019-02-17 18:07] LABS: ALT 15 U/L (7-52); AST 22 U/L (13-39); Albumin 3.7 g/dL (3.2-5.2); Albumin/Globulin Ratio 1.2 (1-3); Alkaline Phosphatase 35 U/L (34-104); Anion Gap 10 mmol/L (2-11); Blood Urea Nitrogen 18 mg/dL (6-24); CO2 Carbon Dioxide 25 mmol/L (22-32); Calcium 8.8 mg/dL (8.6-10.3); Chloride 101 mmol/L (101-111); Cholesterol 109 mg/dL; EGFR African American 125.8 (>60); Glucose 183 mg/dL (70-100); HDL Cholesterol 32.9 mg/dL; LDL Cholesterol 62 mg/dL; Potassium 4.1 mmol/L (3.5-5.0); Sodium 136 mmol/L (135-145); Total Protein 6.7 g/dL (6.4-8.9); Triglycerides 69 mg/dL
[2019-02-17 18:10] LABS: Troponin I 0.04 ng/mL (<0.04)
[2019-02-17 18:36] LABS: Alcohol < 10 mg/dL (<10)
[2019-02-17] MEDS ORDERED: Atorvastatin* 80 MG TAB PO ONE (21:51)
[2019-02-17] MEDS ORDERED: Dextrose 50% Syringe 50 ML* 25 GM/50 ML SYRINGE IV PUSH PRN (22:05)
[2019-02-17] MEDS: Carvedilol TAB* 25 MG PO SCH (23:18)
[2019-02-17] MEDS: Apixaban* 5 MG TAB PO SCH (23:18)
[2019-02-18] MEDS ORDERED: Albuterol HFA INHALER* 8 gm MDI INH PRN (00:52)
--- NOTE | 2019-02-18 03:26 | HP ---
HISTORY AND PHYSICAL: DATE OF ADMISSION: 02/17/19 ADMITTING PROVIDER: Elroy Jordan MD PRIMARY CARE PROVIDER: Dr. Elodia Castillo. CHIEF COMPLAINT: Second episode of sudden onset bilateral blindness. HISTORY OF PRESENT ILLNESS: Carl Roche is an 83-year-old male with past medical history of hypertension, osteoarthritis, ITP in 2017, hyperlipidemia, COPD and reportedly recent heart attack a week prior to admission at [facility]. He attests that while he was hospitalized there, he had an episode of sudden onset of bilateral complete blindness that resolved after about 30 minutes. Reportedly doctors were aware of this event, but notably he is a very poor historian in terms of a complete history of that hospitalization. He states he was started on 8 different medications, denies that he had a left heart catheterization or stents and denies that he even had chest pain at that time. He was at home on the morning of admission. Again, he developed sudden bilateral blindness that resolved after approximately what he says is less than an hour. He went he says to his PCP, Dr. Elodia Castillo, who referred him to the hospital. He presented to [facility], there he had a CT head, which was concerning for left posterior medial occipital infarction versus mass and was referred to [facility] Room after talking to on-call neurologist, Dr. Beth. Of note, the patient got Solu- Medrol 125 mg and clonidine 0.[address] [facility] Beth evaluated the patient along with Dr. Doherty of [facility]. They determined he had NIH of 0, but there was concern for basilar infarction, so a head CTA was obtained, which does show abrupt embolic occlusion within the P1 segment of left posterior cerebral artery as well as a P2 short segment occlusion. Dr. Goldsmith, the interventional neurovascular physician at [facility] did not think that he needed any intervention and was referred to hospitalist service for admission. Dr. Beth is recommending initiation of anticoagulation with Eliquis, given concern for thromboembolic phenomenon causing these CVAs and holding the aspirin and Plavix. The patient denies any chest pain, shortness of breath, slurred speech, difficulty with ambulation. He does not use any assistive devices, he has had no recent falls. He is actually eating a sandwich in the emergency room currently. Additional workup has included troponin of 0.04. His EKG showed some chronic ST elevations in V2 and Dr. Jesus of Cardiology was consulted by Dr. Martinez in the emergency room. He did not think he was having a STEMI. PAST MEDICAL HISTORY: 1. Hypertension. 2. OA. 3. ITP in 2017, status post IVIG. 4. Hyperlipidemia. 5. COPD. 6. Recent heart attack, unknown details at [facility] last week. MEDICATIONS: Include: 1. Lipid 40 mg daily. 2. Aspirin 81 mg daily. 3. Plavix 75 mg daily. 4. Carvedilol 25 mg p.o. b.i.d. 5. Metformin 500 mg p.o. b.i.d. 6. Lisinopril 10 mg daily. ALLERGIES: No known drug allergies. SOCIAL HISTORY: The patient is a former smoker of 40 to 50 years, quit 20 years ago 1 pack per day. He has had PFTs in the past. He was a former heavy drinker, quit 20 to 30 years ago. Denies drug use. He is a former marine. He lives independently. His surrogate is Jaimee Roche. He desires to be a DNR/ DNI. Has not filled out any MOLST paperwork before. FAMILY HISTORY: His mother of what sounds like a heart disease. He is unsure how old she was, she in the 1950s. His father was healthy and in the 1970s. He does not know how old he was. He does not have any siblings. REVIEW OF SYSTEMS: A complete 14-point review of systems negative except as per HPI. PHYSICAL EXAMINATION GENERAL APPEARANCE: No acute distress. Sitting in the hospital bed, eating a sandwich. VITAL SIGNS: Temperature 99.0; heart rate 68, respiratory rate 15, sating 91% on room air; and blood pressure initially 156/87, currently 121/69. HEENT: Normocephalic, atraumatic. Pupils are equally round and reactive to light. Extraocular motions intact. No scleral icterus. Moist mucous membranes. NECK: Supple. LUNGS: Clear to auscultation bilaterally with no wheezing, rales, or rhonchi. CARDIOVASCULAR: Regular rate and rhythm. No murmurs, rubs, or gallops. ABDOMEN: Soft, nontender, nondistended. EXTREMITIES: Warm and well perfused. Trace peripheral edema bilaterally. NEUROLOGIC: Cranial nerves II through XII intact though he does have decreased visual acuity on the left eye and the left outer quadrant. Wire Weaver strength 5/5. Hip flexion, dorsiflexion, plantar flexion all intact. Biceps strength intact. Deltoid strength intact. No loss of sensation. DIAGNOSTIC STUDIES/LAB DATA: White count 8.4, hemoglobin 12.8, hematocrit 37, platelets 194, INR 1.24. Sodium 136, potassium 4.1, chloride 101, carbon dioxide 25, BUN 18, creatinine 0.72, glucose 183, lactic acid 1.4, total bili is 1.1. Troponin 0.04. LDL 62, HDL 33, serum alcohol less than 10. Imaging: CTA of the head and neck demonstrated, impression: 1. There is abrupt thrombotic occlusion within the P1 segment of the left posterior cerebral artery extending for a 3-mm length. There is reconstitution of the vessel. There is a second short-segment occlusion in the left P2 branch peripheral to this. There are questionable low attenuation bladder changer the left occipital lobe suggesting the developing infarction. No hemorrhages are seen, however, the presence of contrast could obscure small bleed, limited atherosclerosis, also with no other documented occlusion or flow-limiting lesion. CTA of the neck showed limited irregular calcific and noncalcific plaque with carotid bulbs in the origins of the internal carotid arteries without dissection or aneurysm. There is a short segment mid 50% stenosis proximal left internal carotid artery. 2. Emphysema and pleural parenchymal scarring in the lung apices with additional ground-glass consolidation, possible active inflammation or infection , most pronounced in the right upper lobe, there is scattered indeterminate 4- mm pulmonary nodules. EKG demonstrated normal sinus rhythm, prolonged [place] interval 270, left axis deviation, there is ST elevations chronically in V2, there are T-wave inversions in V5, V6. These were also previously more pronounced in 2017. He has Q-waves in 3 and aVF. QTC is 472. 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 Appreciate Neurology recommendations. We are going to start Eliquis 5 mg p.o. b.i.d., hold his aspirin and Plavix, get an echocardiogram with bubble study, give him atorvastatin 80 mg up from his 40 mg. His LDL here is 62, HDL 33. I am adding on a hemoglobin A1c. He does have elevated blood glucose to 183, but also of note did get Solu-Medrol at [facility] 125 mg. Putting him on sliding scale insulin. We will get bedside swallow evaluation and follow up with Speech Language Pathology evaluation in the morning, although of note he is already eating a sandwich with no adverse effects apparent so far. Get PT and OT to see him. We will trend his troponins, get an echocardiogram as above. He denies any chest pain. We will continue his beta shakira, lisinopril, normotensive here. Very important, we are going to try to get records from [place] about this NSTEMI and workup for the blindness episode that occurred while he was hospitalized there, see if he got any head imaging there. [facility] and also [facility]al neurolog[facility], no vascular intervention was recommended by Dr. Goldsmith per Dr. Martinez's report. He states he wants to be a DNR/DNI. His medical surrogate is Jaimee Roche, his daughter. [id number]/CPS #: [id number] [facility] LANGONE HEALTH SYSTEMMaria Eugenia
[2019-02-18 05:46] LABS: ABS Basophils 0 10^3/ul (0-0.2); ABS Eosinophils 0 10^3/ul (0-0.6); ABS Lymphocytes 0.7 10^3/ul (1.0-4.8); ABS Monocytes 0.1 10^3/ul (0-0.8); ABS Neutrophils 4.1 10^3/ul (1.5-7.7); ABS Nucleated RBC 0 10^3/ul; Eosinophil % 0 %; Hematocrit 34 % (36-46); Hemoglobin 11.6 g/dL (14.0-18.0); Mean Corpuscular HGB Conc 35 g/dL (31-36); Mean Corpuscular Hemoglobin 31 pg (27-31); Mean Corpuscular Volume 89 fL (80-94); Mean Platelet Volume 8.7 fL (7.4-10.4); Nucleated Red Blood Cells % 0; Platelet Count 199 10^3/uL (150-450); Red Blood Count 3.79 10^6 /uL (4.18-5.48); Red Cell Distribution Width 13 % (10.5-15); White Blood Count 4.9 10^3/uL (3.5-10.8)
[2019-02-18 06:03] LABS: BUN/Creatinine Ratio 32.9 (8-20); C Reactive Protein 44.22 mg/L (<8.01); Calcium 8.3 mg/dL (8.6-10.3); EGFR Non-African American 107.4 (>60); Potassium 3.7 mmol/L (3.5-5.0); Troponin I 0.03 ng/mL (<0.04)
[2019-02-18] MEDS ORDERED: Azithromycin 500 mg/250 ml NS 500 MG/250 ML BAG IVPB ONE (06:12)
[2019-02-18] MEDS: cefTRIAXone(*) 1 GM in NS 0.9% 50 ML* 50 ML IVPB SCH (07:25)
[2019-02-18] MEDS: Insulin LISPRO* 1 UNITS UNIT SUBCUT SCH ×4 (08:02→21:04)
[2019-02-18] MEDS: Apixaban* 5 MG TAB PO SCH (08:03)
[2019-02-18] MEDS: Lisinopril TAB* 10 MG PO SCH (08:03)
[2019-02-18] MEDS: Carvedilol TAB* 25 MG PO SCH ×2 (08:03→17:49)
--- NOTE | 2019-02-18 13:01 | PN ---
Subjective Interval History: Outside records obtained from [facility]. On 02/08 went to PCP because he was feeling fatigued. His troponin was positive so he was sent to [place], with trop thad 0.835 so he was transferred to [facility]. He denied chest pain, reporting only fatigue, and BP 170/79. Tro ppeaked at 0.9. Nuclear stress negative for ischemia. He was started on ASA, carvedilol, atorvastatin, and Plavix. He completed 48 hours of heparin drip. While there, his CXR was concerning for multifocal areas of consolidation. Echo showed concentric LV remodeling, global systolic LV function normal with EF 55- 60%. No regional WMA, mild eccentric aortic regurgitation, PASP normal. Today denying visual symptoms. Objective Active Medications: Albuterol (Ventolin Hfa Inhaler*) 2 puff INH Q6H PRN PRN Reason: SOB/WHEEZING Apixaban (Eliquis*) 5 mg PO BID [facility] Last Admin: 02/18/19 08:03 Dose: 5 mg Atorvastatin Calcium (Lipitor*) 40 mg PO 1700 [facility] Azithromycin (Zithromax Tab*) 250 mg PO DAILY [facility] Carvedilol (Coreg Tab*) 25 mg PO BID WITH MEALS [facility] Last Admin: 02/18/19 08:03 Dose: 25 mg Dextrose (D50w Syringe 50 Ml*) 12.5 gm IV PUSH .FOR FS < 60 - SS PRN PRN Reason: FS < 60 Ceftriaxone Sodium 1 gm/ (Sodium Chloride) 50 mls @ 200 mls/hr IVPB 0730 [facility] Last Admin: 02/18/19 07:25 Dose: 200 mls/hr Insulin Human Lispro (Humalog*) 0 units SUBCUT ACHS [facility]; Protocol Last Admin: 02/18/19 12:20 Dose: 4 unit Lisinopril (Prinivil Tab*) 10 mg PO DAILY [facility] Last Admin: 02/18/19 08:03 Dose: 10 mg Vital Signs - 8 hr 02/18/19 02/18/19 07:15 07:35 Temperature 97.3 F Pulse Rate 54 Respiratory 16 16 Rate Blood Pressure 151/71 (mmHg) O2 Sat by Pulse 99 Oximetry Oxygen Devices in Use Now: Nasal Cannula Appearance: chronically ill-appearing elderly man in no acute distress Ears/Nose/Mouth/Throat: Clear Oropharnyx Respiratory: Clear to Auscultation Cardiovascular: RRR Neurological: - - poor visual acuity at baseline, flattening of R nasolabial fold; otherwise CN2-12 intact, motor and strength grossly in tact in 4 extremities Result Diagrams: 02/18/19 05:15 02/18/19 05:15 Assess/Plan/Problems-Billing Assessment: 83M with CAD with recent NTEMI, HTN, COPD, former smoker, presents with sudden onset of recurrent transient b/l blindness, found with imaging concerning for occipital infarct. . - Patient Problems (1) Occipital infarction Comment: Appreciate Dr. Beth input. Will make final recommendations for medications pending MRI. Likely cardiogenic emboli in setting of recent SC. TTE bubble negative. - holding Eliquis - cont statin - PT/OT (2) Hypertension Comment: cont lisinopril and carvedilol (3) Pneumonia Comment: Seen and possibly finished treatment at outside hospital. Now on CTX/ Azithro. If no further fever, WBC, or symptoms, will consider treatment complete and DC abx. - f/u procal
--- NOTE | 2019-02-18 14:13 | ECHO ---
Patient: TIFFANY FERNANDEZ [facility] Rec#: [id number] : 1935 Date: 02/18/2019 Age: 83y Height: 175.26 cm / 69.0 in Weight: 86.18 kg / 189.9 lbs Sex: M BSA: 2.02 Room#: 438 Admit Date#: 02/17/2019 Type: Inpatient Referring: Elroy Jordan Reading: Angel Jesus DO Book Agent: Virgie Hensley [facility] Transthoracic Echocardiogram Indication: CVA BP: 143/70 HR: 64 Rhythm: NSR Findings History: HTN,arthgritis,ITP,HLD,COPD,prior IA. Technical Comments: The study quality is good. Completed at 1231. Left Ventricle: The left ventricular chamber size is normal. Mild concentric left ventricular hypertrophy is observed. Global left ventricular wall motion and contractility are within normal limits. There is normal left ventricular systolic function. The estimated ejection fraction is 55-60%. There is no consistent Doppler evidence of clinically significant diastolic dysfunction. Left Atrium: The left atrial chamber size is normal. Right Ventricle: The right ventricular cavity size is normal. The right ventricular global systolic function is normal. Right Atrium: The right atrial cavity size is normal. The bubble study is negative. A patent foramen ovale is not demonstrated with color Doppler and agitated contrast. Aortic Valve: The aortic valve is trileaflet. There is mild aortic regurgitation. There is no evidence of aortic stenosis. Mitral Valve: The mitral valve leaflets are mildly thickened. There is no evidence of mitral regurgitation. There is no evidence of mitral stenosis. Tricuspid Valve: The tricuspid valve leaflets are normal. There is mild tricuspid regurgitation. No pulmonary hypertension is noted. There is no tricuspid stenosis. Pulmonic Valve: The pulmonic valve structure is not well visualized. Pericardium: There is no significant pericardial effusion. Aorta: There is no dilatation of the aortic arch. There is mild dilatation of the aortic root. Pulmonary Artery: The main pulmonary artery appears normal. Venous: The venous system is not well visualized. Contrast: Normal saline was used as contrast for the bubble study. Intravenous contrast was used to help determine presence of intracardiac shunting. Intravenous agitated saline contrast was used to assess intracardiac shunting. Conclusions The left ventricular chamber size is normal. Mild concentric left ventricular hypertrophy is observed. Global left ventricular wall motion and contractility are within normal limits. There is normal left ventricular systolic function. The estimated ejection fraction is 55-60%. The left atrial chamber size is normal. The right ventricular cavity size is normal. The right ventricular global systolic function is normal. The bubble study is negative. No significant valvular regurgitation noted. None prior for comparison Measurements Name Value Normal Range RVIDd (AP) 2D 2.6 cm (0.9 - 2.6) RVDdMajor (2D) 3.5 cm (2.2 - 4.4) RAd ISD 4CH 5.2 cm (3.4 - 4.9) RA (A4C)W 3.9 cm (2.9 - 4.6) IVSd (2D) 1 cm (0.6 - 1) LVPWd (2D) 0.8 cm (0.6 - 1) LVIDd (2D) 4.1 cm (3.6 - 5.4) LVIDs (2D) 2.7 cm - LV FS (2D) 34 % (25 - 45) Aortic Annulus 3 cm (1.4 - 2.6) Ao root diameter (2D) 4.1 cm (2.1 - 3.5) Aortic arch 3.5 cm (1.8 - 3.4) Descending Ao 0.4 cm - LA dimension (AP) 2D 3.4 cm (2.3 - 3.8) LAd ISD 4CH 5.9 cm (2.9 - 5.3) LA ISD 4CH W 4.5 cm (2.5 - 4.5) Name Value Normal Range LA ESV SP 4CH (A/L) 34 ml - LA ESV SP 2CH (A/L) 52 ml - LA ESV BP (A/L) 50 ml - LA ESV BP (A/L) index 25 ml/m2 - LA ESV SP 4CH (MOD) 28 ml - LA ESV SP 2CH (MOD) 48 ml - Name Value Normal Range MV E-wave Vmax 0.6 m/sec - MV deceleration time 233 msec - MV A-wave Vmax 1 m/sec - MV E:A ratio 0.65 ratio - LV septal e' Vmax 0.04 m/sec - LV lateral e' Vmax 0.05 m/sec - LV E:e' septal ratio 15 ratio - LV E:e' lateral ratio 12 ratio - Name Value Normal Range AV Vmax 1.3 m/sec - AV VTI 34.4 cm - AV peak gradient 6.34 mmHg - AV mean gradient 2.95 mmHg - LVOT Vmax 0.8 m/sec - LVOT VTI 18.9 cm - LVOT peak gradient 2.51 mmHg - LVOT mean gradient 1.11 mmHg - AR PHT 946.82 msec - AR peak gradient 28.62 mmHg - Name Value Normal Range TR Vmax 2.5 m/sec - TR peak gradient 25 mmHg - RAP 8 mmHg - RVSP 33 mmHg -
--- NOTE | 2019-02-18 16:15 | CONS ---
NEUROLOGY CONSULT FOLLOWUP NOTE: DATE OF FOLLOWUP: 02/18/19 LOCATION: He is an inpatient in room 438. HOSPITALIST: Dr. Kaminski. CHIEF COMPLAINT: Visual loss. INTERVAL HISTORY: Carl was admitted last night via the emergency room when he presented with episodes of visual loss. I saw him briefly before a CT angiogram was done and spoke with Dr. Martinez. Telestroke with [facility] was called regarding the possibility of whether the patient was a thrombectomy candidate. He reported that he had an episode perhaps 15 minutes about 3 days prior to admission of total loss of vision. He did not seek medical attention. He reported that on the day of admission at about 8:00 or 9:00 in the morning , he lost vision totally for 1-1/2 hours. He ended up presenting to [facility]. I was called at about 3:15 in the afternoon by the physician technical administrative assistant. It was told that he had either a tumor or a stroke in his left occipital lobe and was asymptomatic. They did not have CT angiogram capability. I recommended that he be transferred to our emergency room. He arrived a little bit before 5:00 p.m. He was well outside of a tPA window and a CT angiogram was recommended and once obtained consultation with [facility] regarding possible thrombectomy. According to Dr. Martinez's notes, he was evaluated remotely by [facility] and they advised against transfer and thrombectomy. When I saw him yesterday a little after [address] my [address] out, he seemed to have fairly intact visual desai. He reported no problems with his vision at that time. He had no other symptoms and he had an otherwise unremarkable exam. This afternoon, he tells me that he "can't see." I went over the details with him and he is really vague. He says that he cannot see "anything." However, he is able to count some fingers and track my hand. He states he cannot see any detail. He denies any problems with headaches, numbness, or weakness in his limbs. He was hospitalized at [facility] for possible coronary artery event about a week prior. He was discharged on aspirin, Plavix, and a statin. Because of his recent cardiac event as best as we knew last evening and the possibility that he was having a basilar artery emboli from a potential cardiogenic source, I recommended starting apixaban to Dr. Jordan last evening after he evaluated Mr Roche. CURRENT MEDICATIONS: Consist of: 1. Apixaban 5 mg p.o. b.i.d. which was started last night at about 2300 hours. 2. Atorvastatin 40 mg p.o. q. day. 3. Zithromax 250 mg p.o. q. day. 4. Coreg 25 mg p.o. b.i.d. 5. Ceftriaxone 1 g IV q. day. 6. Sliding scale insulin. 7. Lisinopril 10 mg p.o. q. day. ALLERGIES: He is listed as not having any allergies. REVIEW OF SYSTEMS: Review of systems on the patient currently is negative for headache, numbness, difficulty with swallowing, or weakness in the limbs. PHYSICAL EXAMINATION: Most recent blood pressure is 151/71, temperature 97.3, heart rate 54 and regular, respiratory rate is 16 and oxygen saturation was 99% on 3 L of oxygen by nasal cannula. Heart tones are regular. I do not hear any murmurs. Neck is supple. There are no cervical bruits. Oral mucosa is moist. Neurological Exam: Pupils react equally from 3 down to 2 mm. Funduscopic exam reveals sharp discs bilaterally. There is no ptosis. He is able to track my hand visually with full eye movements. He is able to count fingers to some extent in his right visual field but inconsistently. Facial musculature is normal except for mild flattening of the right nasolabial fold. Facial sensation to light touch is reported as symmetric. Speech is clear. Motor exam reveals normal strength in upper and lower extremities. He is awake and alert and upset. It is hard to pin him down on historical details in terms of the timing of the symptoms. He said that he has been unable to see since yesterday. I told him that I examined him in the emergency room when he had intact visual desai. He then states he has been unable to see since this morning. DIAGNOSTIC STUDIES/LAB DATA: From today is notable for CBC with a slight drop in hemoglobin to 11.6 from 12.8 yesterday. White blood cell count is 4.9. His cholesterol yesterday in the afternoon was 109 with an LDL of 62. This morning , the labs are notable for CRP of 44.2, total bilirubin 1.1, glucose 274. Hemoglobin A1c yesterday was 7.3%. Electrolytes today are unremarkable. His INR yesterday was elevated at 1.24, PTT 31.4. CT angiogram of the brain yesterday was officially interpreted by Dr. Ross as a limited irregular calcific and noncalcific plaque in both carotid bulbs and origins of the internal carotid arteries. There is a short segment of mild 50% stenosis of the proximal left internal carotid. There is abnormality noted in the lungs as well suggesting possible active inflammation or infection , most pronounced in right upper lobe. CT angiogram of the brain was interpreted as showing an abrupt occlusion within the P1 segment of the left posterior cerebral artery extending for 3 mm length. There is reconstitution distal to this. There is a second short segment occlusion in left P2 branch peripheral to this. IMPRESSION: Impression is that of an occipital lobe infarct, it appears that it may have progressed to the right side. My thoughts last evening with lack of a basilar stenosis and the report of a recent myocardial infarction was that it might be from cardiogenic emboli to the tip of his basilar artery, I therefore recommended apixaban. PLAN/RECOMMENDATIONS: I think he needs an MRI scan of the brain at this point. He is not having headache, so I do not think we need to cohen him up for a repeat CAT scan. A transthoracic echocardiogram has been ordered. He appears to have a pulmonary process going on as well. He has not had a fever or elevated white blood cell counts since he has been here. I am going to hold his apixaban until his MRI is complete and then make further recommendations. [id number]/[facility] #: [id number] MTDD
[2019-02-18] MEDS: Atorvastatin* 40 MG TAB PO SCH (17:49)
[2019-02-18 21:46] LABS: Urine Appearance Cloudy; Urine Bilirubin Negative (Negative); Urine Blood Negative (Negative); Urine Color Yellow; Urine Glucose 3+(>=500 mg/dL) (Negative); Urine Ketones Negative (Negative); Urine Nitrite Negative (Negative); Urine Protein Negative (Negative); Urine Specific Gravity 1.035 (1.010-1.030); Urine Urobilinogen Negative (Negative)
[2019-02-18 22:09] LABS: Urine Benzodiazepine Screen None Detected (None Detect); Urine Opiates Screen None Detected (None Detect)
[2019-02-19 05:46] LABS: Hematocrit 34 % (36-46); Hemoglobin 11.9 g/dL (14.0-18.0); Mean Corpuscular HGB Conc 35 g/dL (31-36); Mean Corpuscular Hemoglobin 31 pg (27-31); Mean Corpuscular Volume 89 fL (80-94); Mean Platelet Volume 8.7 fL (7.4-10.4); Platelet Count 221 10^3/uL (150-450); Red Blood Count 3.88 10^6 /uL (4.18-5.48); Red Cell Distribution Width 13 % (10.5-15); White Blood Count 10.5 10^3/uL (3.5-10.8)
[2019-02-19 06:04] LABS: BUN/Creatinine Ratio 39.4 (8-20); Calcium 8.2 mg/dL (8.6-10.3); EGFR African American 127.9 (>60); EGFR Non-African American 105.7 (>60); Magnesium 2.1 mg/dL (1.9-2.7); Potassium 3.2 mmol/L (3.5-5.0)
[2019-02-19] MEDS: cefTRIAXone(*) 1 GM in NS 0.9% 50 ML* 50 ML IVPB SCH (07:56)
[2019-02-19] MEDS ORDERED: Potassium Chlor TAB* 20 MEQ TAB.ER PO ONE (08:15)
[2019-02-19] MEDS: Insulin LISPRO* 1 UNITS UNIT SUBCUT SCH ×4 (08:51→20:52)
[2019-02-19] MEDS: Azithromycin TAB* 250 MG PO SCH (08:51)
[2019-02-19] MEDS: Lisinopril TAB* 10 MG PO SCH (08:51)
[2019-02-19] MEDS: Carvedilol TAB* 25 MG PO SCH ×2 (08:52→16:22)
[2019-02-19] MEDS: Aspirin EC TAB* 81 MG TAB.EC PO SCH (10:59)
[2019-02-19 11:22] LABS: C Reactive Protein 19.52 mg/L (<8.01)
[2019-02-19 12:19] LABS: Erythrocyte Sed Rate 5 mm/Hr (0-19)
--- NOTE | 2019-02-19 13:32 | PN ---
CC: Dr. Lito Beth; Dr. Topher Fowler FOLLOWUP NOTE: DATE OF SERVICE: HISTORY: Mr. Roche is an 83-year-old gentleman with history of hypertension, hyperlipidemia, remote history of smoking with COPD, history of recent admission to [facility] with elevated troponins, and per chart, history of ITP with IVIG therapy in the past, basal cell carcinoma, who was transferred here from [facility] for evaluation and treatment of left occipital findings on CT. In looking back to the records from [facility], he had presented to [facility] with feelings of fatigue and malaise and was diagnosed with myocardial infarction in the setting of troponin with peak of 0.9 and no chest pain. His stress echo was negative. He was on heparin for 48 hours and then discharged on a statin, aspirin, and Plavix. He was noted to be prediabetic and started on metformin. He also is noted to have hypertension. During the hospitalization, they noted intermittent confusion. They also noted normal B12 and TSH. Chest x- ray was read as showing multifocal consolidation in the right mid lung and base. Echocardiogram at [facility] was a transthoracic echocardiogram. No cardioembolic source was noted. Notes indicate that he was unsure why he was in hospital. Further review indicates that primary doctor had noted recent rash on abdomen and appears he was on dexamethasone 40 mg for 4 days. He was not on aspirin at home or any antiplatelet. There is also history obtained of cough with white and brown sputum. He was reported in the chart to have sudden onset of bilateral blindness for [address] [facility]. The patient cannot remember and I do not see anything in the discharge summary. At home, he had an episode of blindness for less than hour. He was seen at [facility] and found to have a left occipital lesion and was transferred to [facility] At [facility], he had a CTA of the brain and neck, which showed abrupt thrombotic occlusion within the P1 segment of the left [employer] for about 3 mm, and a second short occlusion in the P2 segment. Proximal left ICA stenosis was noted at 50%. Also, emphysema and pleural scarring was noted in the lung apices with ground-glass consolidation in the right upper lobe and scattered 4 mm pulmonary nodules of unclear significance. He was started on Eliquis for the possibility of cardioembolic and thromboembolic from basilar artery. He proceeded in having further vision loss and Eliquis was held as the MRI was obtained. MRI of the brain showed multiple ischemic strokes, particularly the left occipital and the right posterior parietal. In addition, there were changes on diffusion weighted images in the anterior circulation that were very small in cortical region, some of which appeared to have darkness on ADC map, others were hard to determine. In addition in reviewing susceptibility weighted images , it appeared he had microhemorrhage in the left occipital lobe and this was confirmed with Radiology. He has had an echocardiogram here that was transthoracic, which showed a negative bubble study, mild LVH, ejection fraction of 55 to 60%. The patient indicates that he continues to have difficulty seeing. He denies any other symptom. He denies any chest pain, chest pressure, palpitations. There has been no shortness of breath. He does not remember anything about IVIG or rash. It was noted on his feet that he had redness extending up on to his ankles and poor foot hygiene. He was unaware of any rash. He denies any recent weight loss, drenching night sweats, change in appetite. He lives by himself. MEDICATIONS: Include: 1. Albuterol 2 puffs inhaled q.6 hours p.r.n. shortness of breath and wheezing. 2. Aspirin 81 mg p.o. q. day. 3. Lipitor 40 mg p.o. q.p.m. 4. Azithromycin 250 mg p.o. q. day. 5. Coreg 25 mg p.o. b.i.d. with meals. 6. Ceftriaxone 1 g IV at 7:30 a.m., p.r.n. D50 is noted . 7. Insulin is ordered. 8. Lisinopril was ordered for 10 mg p.o. q. day. 9. Atorvastatin 40 mg p.o. q.p.m. PHYSICAL EXAMINATION: On examination, temperature was 97.7 degrees Fahrenheit, heart rate was 52, respiratory rate was 12, saturation was 99% on room air, and blood pressure was 158/68. He had a regular cardiac rhythm. His lungs were clear to auscultation. There was no carotid bruit. He had foot changes with rash heading up above his ankle on the left side and just on his foot with poor foot hygiene and thickened nails. His pulses were present in the dorsalis pedis and posterior tibialis. He was awake and alert. He did not know the month. He did not know the year, thinking it was 2028. He did know the president was Ra[place]. Pupils were equal and responsive to light. No significant abnormalities were noted in the parts of the fundi I could observe with funduscopic exam. He had full extraocular movements with saccadic intrusions. He could only see in the right upper quadrant to confrontation. His facial expression was asymmetric with a slight right central 7th. Facial sensation was symmetric. Hearing was equal to finger rub. Palate was upgoing. Tongue was midline. Sternocleidomastoid and trapezius were 5/5 in strength. There was normal bulk and tone. Right pronator drift. Good strength in the upper and lower extremities and normal finger-to- nose and [id number] movements. He denied any asymmetries to pinprick, cold, or light touch. Vibration sensation was absent at the large toes and decreased at the knees by about 15 seconds. Reflexes were 1+ in the upper extremities, slight at the knees, absent at the ankles. Toes were downgoing bilaterally. Gait was not tested given clinical status. DIAGNOSTIC STUDIES/LAB DATA: New data includes CBC today, which showed white count that is increasing at 10.5, hemoglobin and hematocrit were slightly low, platelets were 221. His metabolic panel showed a potassium that was slight low at 3.2, creatinine was normal, BUN was elevated with an elevated BUN and creatinine ratio. His glucose has been persistently high and his calcium was 8.2. His urinalysis yesterday showed high specific gravity and 3+ glucose, and he had a tox screen when he was admitted, which showed no significant findings including alcohol level. IMPRESSION: An 83-year-old gentleman admitted to hospital with difficulty with vision after recent admission to [facility] for elevated troponins, now found to have multiple ischemic strokes with small hemorrhagic component in the left occipital lobe. The small areas on diffusion weighted images anteriorly raised question of ischemic lesions in all vessel distributions. They were very small and hard to confirm on ADC map. I have suspect a cardioembolic etiology. He is on telemetry. I spoke to him about a transesophageal echocardiogram and we will re-discuss this with him as cardiac thrombus would business change manager. He was somewhat skeptical being able to do it today. I will check CRP and C-reactive protein as well as SANDRA for potential for vasculitis. I have restarted aspirin 81 mg a day. Pros and cons were discussed. This will provide some prevention of stroke, however, there is some risk of bleed. Given the bleed in the left occipital stroke, I would hold off on anticoagulation even if cardioembolic source is found at this time. If there indeed is a cardiac thrombus, we may need to consider anticoagulation earlier. He needs physical therapy and occupational therapy as well as rehab consult. Given his profound vision loss and that he can only see the right upper quadrant, he will need quite a bit of support. Differential diagnosis does include hypercoagulability for other reasons such as neoplasm. He will need a followup on his chest findings. His records indicate that he had IVIG, and he is unable to give me further information. My question is when this was last given as this can cause increased viscosity. Question is raised on the role of the rash and whether this is of any significance. He recently was also on steroids before the admission to [facility]. Steroids were given at [place] for differential of neoplasm in the brain. TIME SPENT: Over an [id number] was spent in patient's care, reviewing detailed records, speaking with the patient providing educating, communicating with hospitalist team. All questions were answered. [id number]/[facility] #: [id number] ANN
--- NOTE | 2019-02-19 13:40 | PN ---
Subjective Interval History: Spoke with friend, Stanford Ruth [phone], who is his neighbor and mostly the person who cares for the patient. States that the daughter, Jaimee, is at this number . Stanford states that patient isn't able to care for himself at home, as of last month. Has 2 coal stoves with issues controlling his home temperature. Stanford is the one that brought patient to the ER. He states that, from what he knows of his friend, he would not want many medical interventions. Mr. Roche has told him several times that he is too old for that. He is happiest at home and hopes to return. Pt today asks me if he can chew tobacco in the hospital. Otherwise denies complaints. Objective Active Medications: Albuterol (Ventolin Hfa Inhaler*) 2 puff INH Q6H PRN PRN Reason: SOB/WHEEZING Aspirin (Aspirin Ec Tab*) 81 mg PO DAILY [facility] Last Admin: 02/19/19 10:59 Dose: 81 mg Atorvastatin Calcium (Lipitor*) 40 mg PO 1700 [facility] Last Admin: 02/18/19 17:49 Dose: 40 mg Azithromycin (Zithromax Tab*) 250 mg PO DAILY [facility] Last Admin: 02/19/19 08:51 Dose: 250 mg Carvedilol (Coreg Tab*) 25 mg PO BID WITH MEALS [facility] Last Admin: 02/19/19 08:52 Dose: 25 mg Dextrose (D50w Syringe 50 Ml*) 12.5 gm IV PUSH .FOR FS < 60 - SS PRN PRN Reason: FS < 60 Ceftriaxone Sodium 1 gm/ (Sodium Chloride) 50 mls @ 200 mls/hr IVPB 0730 [facility] Last Admin: 02/19/19 07:56 Dose: 200 mls/hr Insulin Human Lispro (Humalog*) 0 units SUBCUT ACHS [facility]; Protocol Last Admin: 02/19/19 12:09 Dose: 2 unit Lisinopril (Prinivil Tab*) 10 mg PO DAILY [facility] Last Admin: 02/19/19 08:51 Dose: 10 mg Vital Signs - 8 hr 02/19/19 02/19/19 02/19/19 07:35 07:53 11:06 Temperature 97.7 F 97.2 F Pulse Rate 52 54 Respiratory 14 12 16 Rate Blood Pressure 158/68 140/63 (mmHg) O2 Sat by Pulse 99 94 Oximetry Oxygen Devices in Use Now: None Result Diagrams: 02/19/19 05:11 02/19/19 05:11 Microbiology and Other Data: Microbiology 02/18/19 05:19 Aerobic Blood Culture - Preliminary Blood Venous No Growth Day 1 Anaerobic Blood Culture - Preliminary No Growth Day 1 02/18/19 05:15 Aerobic Blood Culture - Preliminary Blood Venous No Growth Day 1 Anaerobic Blood Culture - Preliminary No Growth Day 1 02/18/19 21:30 Legionella Urinary Antigen - Final Urine Negative Legionella Antigen 02/18/19 21:30 Streptococcus pneumoniae Ag Screen - Final Urine Negative S. pneumo Antigen Assess/Plan/Problems-Billing Assessment: 83M with CAD with recent NTEMI, HTN, COPD, former smoker, presents with sudden onset of recurrent transient b/l blindness, found with imaging concerning for occipital infarct. . - Patient Problems (1) Occipital infarction Comment: Appreciate Dr. Murphy input. Likely cardiogenic emboli in setting of recent UT. TTE bubble negative. Also on differential is hypercoagulability from neoplasm or autoimmune disease. - cont ASA and statin - PT/OT - continue on telemetry - likely will need placement (2) Hypertension Comment: cont lisinopril and carvedilol (3) Pneumonia Comment: CXR consistent with outside hospital, however seems he was not given abx there. Now on CTX/Azithro. If no further fever, WBC, or symptoms, will consider discontinuing antibiotics. - f/u procal - if negative, may need further chest imaging
[2019-02-19] MEDS: Atorvastatin* 40 MG TAB PO SCH (16:22)
[2019-02-19] MEDS ORDERED: LORazepam INJ* 2 MG/ML 1 ML VIAL IV PUSH PRN (18:41)
[2019-02-19] MEDS ORDERED: Lorazepam PYXIS KEY PRN (18:44)
[2019-02-19] MEDS: Melatonin 3 MG TAB PO SCH (20:55)
[2019-02-20 07:05] LABS: BUN/Creatinine Ratio 34.7 (8-20); Calcium 8.3 mg/dL (8.6-10.3); EGFR African American 120.1 (>60); EGFR Non-African American 99.2 (>60); Potassium 3.5 mmol/L (3.5-5.0)
[2019-02-20] MEDS: cefTRIAXone(*) 1 GM in NS 0.9% 50 ML* 50 ML IVPB SCH (07:36)
[2019-02-20] MEDS: Insulin LISPRO* 1 UNITS UNIT SUBCUT SCH ×4 (08:13→20:43)
[2019-02-20] MEDS: Aspirin EC TAB* 81 MG TAB.EC PO SCH (08:14)
[2019-02-20] MEDS: Lisinopril TAB* 10 MG PO SCH (08:14)
[2019-02-20] MEDS: Azithromycin TAB* 250 MG PO SCH (08:14)
[2019-02-20] MEDS: Carvedilol TAB* 25 MG PO SCH ×2 (08:14→16:19)
[2019-02-20] MEDS ORDERED: Calcium Gluconate INJ* 1 GM in NS 0.9% 50 ML* 50 ML IVPB ONE (10:35)
[2019-02-20] MEDS ORDERED: Enoxaparin(*) 30 MG/0.3 ML SYR SUBCUT SCH (11:00)
--- NOTE | 2019-02-20 15:06 | PN ---
Progress Note - Progress Note Date of Service: 02/20/19 Note: cc: "I want to go home" HPI: 83-year-old man with history of hypertension, hyperlipidemia, recent admission to [facility] for elevated troponin, now with multiple ischemic strokes of unclear etiology with small hemorrhage into the left occipital lobe. He is on Aspirin. In [facility] he had heparin for 2 days, and here he was initially on plavix and aspirin, and then had been given 2 doses of Eliquis. Since yesterday, he denies new change in vision, numbness or weakness of arms or legs, or change in coordination. He wants to go home. His step daughter Jaimee and her significant other were at bedside, and they indicated that they could not take him home. Medications: Albuterol (Ventolin Hfa Inhaler*) 2 puff INH Q6H PRN PRN Reason: SOB/WHEEZING Aspirin (Aspirin Ec Tab*) 81 mg PO DAILY [facility] Last Admin: 02/20/19 08:14 Dose: 81 mg Atorvastatin Calcium (Lipitor*) 40 mg PO 1700 [facility] Last Admin: 02/19/19 16:22 Dose: 40 mg Azithromycin (Zithromax Tab*) 250 mg PO DAILY [facility] Last Admin: 02/20/19 08:14 Dose: 250 mg Carvedilol (Coreg Tab*) 25 mg PO BID WITH MEALS [facility] Last Admin: 02/20/19 08:14 Dose: 25 mg Dextrose (D50w Syringe 50 Ml*) 12.5 gm IV PUSH .FOR FS < 60 - SS PRN PRN Reason: FS < 60 Ceftriaxone Sodium 1 gm/ (Sodium Chloride) 50 mls @ 200 mls/hr IVPB 0730 [facility] Last Admin: 02/20/19 07:36 Dose: 200 mls/hr Insulin Human Lispro (Humalog*) 0 units SUBCUT ACHS [facility]; Protocol Last Admin: 02/20/19 12:24 Dose: 2 unit Lisinopril (Prinivil Tab*) 10 mg PO DAILY [facility] Last Admin: 02/20/19 08:14 Dose: 10 mg Lorazepam (Ativan Inj*) 0.5 mg IV PUSH Q12H PRN PRN Reason: Anxiety/Agitation Melatonin (Melatonin) 3 mg PO BEDTIME [facility] Last Admin: 02/19/19 20:55 Dose: Not Given Miscellaneous (Ativan Pyxis Haddad) 1 ea N/A .PYXIS HADDAD PRN PRN Reason: PER PROTOCOL Examination: Vital Signs 02/19/19 02/19/19 02/19/19 15:18 20:00 20:50 Temperature 98.2 F 98 F Pulse Rate 59 54 Respiratory 18 18 18 Rate Blood Pressure 153/82 146/71 (mmHg) O2 Sat by Pulse 97 97 Oximetry 02/19/19 02/20/19 02/20/19 23:51 03:20 07:43 Temperature 97.7 F 97.8 F Pulse Rate 65 60 Respiratory 16 18 18 Rate Blood Pressure 156/81 147/66 (mmHg) O2 Sat by Pulse 93 91 Oximetry 02/20/19 02/20/19 07:50 11:11 Temperature 98.4 F 98.2 F Pulse Rate 63 61 Respiratory 16 16 Rate Blood Pressure 156/72 136/57 (mmHg) O2 Sat by Pulse 92 95 Oximetry There was regular cardiac rhythm, lungs were clear to auscultation, He knew he was in hospital, and was aware of strokes, he had normal language function There was improvement in that he could see a finger in both lateral and nasal upper visual desai. There was no vision detected in lower lateral and nasal desai. His facial expression was symmetric. There was no dysarthria. He had no pronator drift, with full strength in arms and legs. No dysmetria was noted in arms and legs. Data: Laboratory Results - last 24 hr 02/19/19 02/19/19 02/20/19 16:22 19:33 06:39 Sodium 140 Potassium 3.5 Chloride 107 Carbon Dioxide 25 Anion Gap 8 BUN 26 H Creatinine 0.75 Est GFR ( Amer) 120.1 Est GFR (Non-Af Amer) 99.2 BUN/Creatinine Ratio 34.7 H Glucose 138 H POC Glucose (mg/dL) 144 H 168 H Calcium 8.3 L Magnesium 2.0 02/20/19 02/20/19 07:41 11:40 Sodium Potassium Chloride Carbon Dioxide Anion Gap BUN Creatinine Est GFR ( Amer) Est GFR (Non-Af Amer) BUN/Creatinine Ratio Glucose POC Glucose (mg/dL) 148 H 189 H Calcium Magnesium HgbA1C: 7.3 CRP: 19.52 Sedimentation rate: 5 Impression: 83-year-old gentleman with history of HTN, hyperlipidemia, use of chewing tobacco, recent admission to [facility] for possible [place], now with multiple embolic strokes of unclear etiology. His vision in superior desai is improving on examination. He continues to be monitored on telemetry for atrial fibrillation. Would check TSH. Spoke to Dr. Angel Jesus regarding his echocardiogram, and he felt that it was a good view, and a transesophageal echo would not add any information (other than potentially visualization of aortic plaquing.). Given bleed in left occipital lobe ischemic stroke, we are limited in treatment at this time. For now continue on ASA. If embolic source is found, and he is stable clinically, and on CT brain in one week, then would consider anticoagulation. Sedimentation rate is normal, making vasculitis less likely etiology. He may need character actress monitoring as outpatient. Patient was unable to give input regarding if he had IVIG recently. Would check with primary care. This could increase viscosity and risk for stroke. There was ground glass changes noted in right upper lobe and scattered 4mm pulmonary nodules. This needs follow up; underlying neoplasm could increase risk of stroke. Lastly, step daughter Jaimee was at bedside, and indication that she would not be able to provide care at her home for Mr. Roche due to her health problems. Await assessment of PT/OT/ Rehab for functional ability, safety at home, potential for rehab. > 40 minutes care, > 50% education and counseling about above issues, including strokes, potential etiologies, work up and treatment to date, concern regarding safety upon discharge, potential for need for supervision in the setting of vision loss.
[2019-02-20] MEDS: Atorvastatin* 40 MG TAB PO SCH (16:19)
--- NOTE | 2019-02-20 17:26 | PN ---
Subjective Date of Service: 02/20/19 Interval History: Pt seen and examined. Meds and labs reviewed. CC: N/A ROS: Denied GROSS/dizziness, F/C, N/V, CP, SOB, increased cough, sputum production , abd pain, diarrhea, constipation, dysuria, myalgias, arthralgias, throat pain , and new skin lesions. The rest of the 14 point ROS are unremarkable. PHYSICAL EXAM: GEN APPEARANCE: Awake, not in acute distress HEENT: NC/AT, PERRLA, moist oral mucosa, (-) throat erythema NECK: Soft, supple, (-) cervical LAD, (-)JVD HEART: S1S2 WNL, RRR, No MRG CHEST: CTA, BL, GAE, No W/R/R ABD: Soft, ND/NT, NABS 4x Q EXT: No C/C/E SKIN: Warm to touch PSYCH: No active psychosis, hallucinations, depression, SI/HI Objective Active Medications: Albuterol (Ventolin Hfa Inhaler*) 2 puff INH Q6H PRN PRN Reason: SOB/WHEEZING Aspirin (Aspirin Ec Tab*) 81 mg PO DAILY [facility] Last Admin: 02/20/19 08:14 Dose: 81 mg Atorvastatin Calcium (Lipitor*) 40 mg PO 1700 [facility] Last Admin: 02/20/19 16:19 Dose: 40 mg Azithromycin (Zithromax Tab*) 250 mg PO DAILY [facility] Last Admin: 02/20/19 08:14 Dose: 250 mg Carvedilol (Coreg Tab*) 25 mg PO BID WITH MEALS [facility] Last Admin: 02/20/19 16:19 Dose: 25 mg Dextrose (D50w Syringe 50 Ml*) 12.5 gm IV PUSH .FOR FS < 60 - SS PRN PRN Reason: FS < 60 Ceftriaxone Sodium 1 gm/ (Sodium Chloride) 50 mls @ 200 mls/hr IVPB 0730 [facility] Last Admin: 02/20/19 07:36 Dose: 200 mls/hr Insulin Human Lispro (Humalog*) 0 units SUBCUT ACHS [facility]; Protocol Last Admin: 02/20/19 12:24 Dose: 2 unit Lisinopril (Prinivil Tab*) 10 mg PO DAILY [facility] Last Admin: 02/20/19 08:14 Dose: 10 mg Lorazepam (Ativan Inj*) 0.5 mg IV PUSH Q12H PRN PRN Reason: Anxiety/Agitation Melatonin (Melatonin) 3 mg PO BEDTIME [facility] Last Admin: 02/19/19 20:55 Dose: Not Given Miscellaneous (Ativan Pyxis Lacey) 1 ea N/A .PYXIS LACEY PRN PRN Reason: PER PROTOCOL Vital Signs - 8 hr 02/20/19 02/20/19 11:11 15:18 Temperature 98.2 F 97.7 F Pulse Rate 61 60 Respiratory 16 16 Rate Blood Pressure 136/57 158/72 (mmHg) O2 Sat by Pulse 95 97 Oximetry Oxygen Devices in Use Now: None Result Diagrams: 02/19/19 05:11 02/20/19 06:39 Microbiology and Other Data: Microbiology 02/18/19 05:19 Aerobic Blood Culture - Preliminary Blood Venous No Growth Day 1 Anaerobic Blood Culture - Preliminary No Growth Day 1 02/18/19 05:15 Aerobic Blood Culture - Preliminary Blood Venous No Growth Day 1 Anaerobic Blood Culture - Preliminary No Growth Day 1 02/18/19 21:30 Legionella Urinary Antigen - Final Urine Negative Legionella Antigen 02/18/19 21:30 Streptococcus pneumoniae Ag Screen - Final Urine Negative S. pneumo Antigen Assess/Plan/Problems-Billing Assessment: 83M with CAD with recent NTEMI, HTN, COPD, former smoker, presents with sudden onset of recurrent transient b/l blindness, found with imaging concerning for occipital infarct. . - Patient Problems (1) Occipital infarction Current Visit: Yes Status: Acute Code(s): I63.9 - CEREBRAL INFARCTION, UNSPECIFIED SNOMED Code(s): 127999165 Comment: -D/W Dr. Murphy; Will D/C Lovenox given concern for bleed in L. occipital lobe -Improved vision in superior field -Telemetry reviewed; occasional PVCs only -Appreciate Dr. Murphy input. Likely cardiogenic emboli in setting of recent OR. TTE bubble negative. Also on differential is hypercoagulability from neoplasm or autoimmune disease. - cont ASA and statin - PT/OT - continue on telemetry - likely will need placement (2) Hypertension Current Visit: Yes Status: Acute Code(s): I10 - ESSENTIAL (PRIMARY) HYPERTENSION SNOMED Code(s): 74968695 Comment: -cont lisinopril and carvedilol (3) Pneumonia Current Visit: Yes Status: Acute Code(s): J18.9 - PNEUMONIA, UNSPECIFIED ORGANISM SNOMED Code(s): 321800655 Comment: -CXR consistent with outside hospital, however seems he was not given abx there. Now on CTX/Azithro. If no further fever, WBC, or symptoms, will consider discontinuing antibiotics. - f/u procal -(-)Blood Cx x2 -(-)Urine Ag for S. pneumonia and Legionella (4) DVT prophylaxis Current Visit: Yes Status: Acute Code(s): QIP8257 - SNOMED Code(s): 142969183 Comment: -Not on pharmacologic prophylaxis due to concern for bleed in L. occipital lobe -Will place pt on SCDs Status and Disposition: -For rehab placement
[2019-02-20] MEDS: Melatonin 3 MG TAB PO SCH (20:10)
[2019-02-21 06:20] LABS: ABS Basophils 0 10^3/ul (0-0.2); ABS Eosinophils 0.1 10^3/ul (0-0.6); ABS Lymphocytes 1.6 10^3/ul (1.0-4.8); ABS Monocytes 0.7 10^3/ul (0-0.8); ABS Neutrophils 6.6 10^3/ul (1.5-7.7); ABS Nucleated RBC 0 10^3/ul; Eosinophil % 0.8 %; Hematocrit 35 % (36-46); Hemoglobin 12.1 g/dL (14.0-18.0); Lymphocyte % 18.2 %; Mean Corpuscular HGB Conc 34 g/dL (31-36); Mean Corpuscular Hemoglobin 30 pg (27-31); Mean Corpuscular Volume 89 fL (80-94); Mean Platelet Volume 8.4 fL (7.4-10.4); Nucleated Red Blood Cells % 0.1; Platelet Count 210 10^3/uL (150-450); Red Blood Count 3.98 10^6 /uL (4.18-5.48); Red Cell Distribution Width 13 % (10.5-15); White Blood Count 9.1 10^3/uL (3.5-10.8)
[2019-02-21 06:35] LABS: Albumin 3.4 g/dL (3.2-5.2); Albumin/Globulin Ratio 1.3 (1-3); BUN/Creatinine Ratio 29.7 (8-20); Calcium 8.7 mg/dL (8.6-10.3); EGFR African American 121.9 (>60); EGFR Non-African American 100.8 (>60); Globulin 2.7 g/dL (2-4); Magnesium 2.1 mg/dL (1.9-2.7); Phosphorus 3.3 mg/dL (2.5-5.0); Potassium 3.4 mmol/L (3.5-5.0); Total Protein 6.1 g/dL (6.4-8.9)
[2019-02-21] MEDS: cefTRIAXone(*) 1 GM in NS 0.9% 50 ML* 50 ML IVPB SCH (07:29)
--- NOTE | 2019-02-21 07:59 | PN ---
Subjective Date of Service: 02/21/19 Length of Stay: 4 Days Interval History: H/O elevated trops, previously admitted to [facility], here with multiple ischemic strokes, etiology unclear, hemorrhagic component in the left occipital lobe, small. Now on ASA. status post 2 days of Heparin at [facility], 2 days of Eliquis, recently on ASA/Plavix but now on ASA only given bleeding and risk. No issues overnight. PVCs on telemetry. Nurse reports oriented to himself only , no agitation and re-orients. Continues to have some right sided weakness and visual field issues. Otherwise, doing ok. He is aware of the stroke but has somewhat poor insight into the nature of his illness. Denies, N/V, speech difficulties, left sided weakness, numbness bilaterally. States he is able to walk with assistance. There is concern for his ability to care for himself or have family care for him at home in this state. PT/OT evaluating. Objective Active Medications: Albuterol (Ventolin Hfa Inhaler*) 2 puff INH Q6H PRN PRN Reason: SOB/WHEEZING Aspirin (Aspirin Ec Tab*) 81 mg PO DAILY [facility] Last Admin: 02/20/19 08:14 Dose: 81 mg Atorvastatin Calcium (Lipitor*) 40 mg PO 1700 [facility] Last Admin: 02/20/19 16:19 Dose: 40 mg Azithromycin (Zithromax Tab*) 250 mg PO DAILY [facility] Last Admin: 02/20/19 08:14 Dose: 250 mg Carvedilol (Coreg Tab*) 25 mg PO BID WITH MEALS [facility] Last Admin: 02/20/19 16:19 Dose: 25 mg Dextrose (D50w Syringe 50 Ml*) 12.5 gm IV PUSH .FOR FS < 60 - SS PRN PRN Reason: FS < 60 Ceftriaxone Sodium 1 gm/ (Sodium Chloride) 50 mls @ 200 mls/hr IVPB 0730 [facility] Last Admin: 02/21/19 07:29 Dose: 200 mls/hr Insulin Human Lispro (Humalog*) 0 units SUBCUT ACHS [facility]; Protocol Last Admin: 02/20/19 20:43 Dose: 2 unit Lisinopril (Prinivil Tab*) 10 mg PO DAILY [facility] Last Admin: 02/20/19 08:14 Dose: 10 mg Lorazepam (Ativan Inj*) 0.5 mg IV PUSH Q12H PRN PRN Reason: Anxiety/Agitation Melatonin (Melatonin) 3 mg PO BEDTIME [facility] Last Admin: 02/20/19 20:10 Dose: 3 mg Miscellaneous (Ativan Pyxis Lacey) 1 ea N/A .PYXIS LACEY PRN PRN Reason: PER PROTOCOL Vital Signs 02/20/19 02/20/19 02/20/19 11:11 15:18 20:00 Temperature 98.2 F 97.7 F Pulse Rate 61 60 Respiratory 16 16 16 Rate Blood Pressure 136/57 158/72 (mmHg) O2 Sat by Pulse 95 97 Oximetry 02/21/19 02/21/19 02/21/19 00:03 03:08 07:12 Temperature 98 F 98.5 F 98.2 F Pulse Rate 61 54 70 Respiratory 18 18 18 Rate Blood Pressure 119/53 157/70 183/86 (mmHg) O2 Sat by Pulse 94 92 93 Oximetry Intake and Output Last 24 Hours 02/19/19 02/20/19 02/21/19 02/22/19 06:59 06:59 06:59 06:59 Intake Total 1519 1538 961 Output Total 550 170 Balance 969 1368 961 Weight 177 lb Intake: IV Fluids 59 20 35 calcium gluconate 15 ceftriaxone 59 20 20 IVPB 250 58 116 calcium gluconate 58 ceftriaxone 58 58 zithromax 250 Oral 1210 1460 810 Output: Urine 550 170 Other: Estimated Void Small Medium # Bowel Movements 0 1 Estimated Stool Amount Large # Voids 0 1 0 Oxygen Devices in Use Now: None Neurology Exam: General: Well nourished, well developed, and in no acute distress, sitting in bedside chair HEENT: Normocephelic/atraumatic, sclera anicteric, mucous membranes moist Neck: Supple Chest: Clear to auscultation bilaterally Cardiovascular: Regular rate and rhythm Abdomen: Soft, non-tender/non-distended Extremities: No clubbing, cyanosis, or edema Neurological Findings: Awake, alert, and oriented to person Speech: fluent without dysarthria, repetition intact Cranial Nerve: PERRL, EOM intact, lateral vision and nasal VFs are present, difficult exam, no nystagmus, face symmetric bilaterally, hearing diminished to finger rub bilaterally, palate elevates symmetrically, tongue midline Motor: Limited ROM of the RUE with generally preserved strength in arms and legs , no obvious drift. Deep Tendon Reflex: down throughout Finger to nose, rapid alternating movements intact without tremor Result Diagrams: 02/21/19 05:35 02/21/19 05:35 Microbiology and Other Data: Microbiology 02/18/19 05:19 Aerobic Blood Culture - Preliminary Blood Venous No Growth Day 1 Anaerobic Blood Culture - Preliminary No Growth Day 1 02/18/19 05:15 Aerobic Blood Culture - Preliminary Blood Venous No Growth Day 1 Anaerobic Blood Culture - Preliminary No Growth Day 1 02/18/19 21:30 Legionella Urinary Antigen - Final Urine Negative Legionella Antigen 02/18/19 21:30 Streptococcus pneumoniae Ag Screen - Final Urine Negative S. pneumo Antigen Assessment/Plan Assessment: 83M with CAD with recent NTEMI, HTN, COPD, former smoker, presents with sudden onset of recurrent vision loss, embolic strokes: 1. Strokes: etiology/source unclear but consider cardiac source after [place]. --Continue Tele: strongly consider outpatient 30 day or 3 year monitor for A.fib --TTE of good quality, no evidence of thrombus --Continue ASA for now. Given small bleed, holding DAPT. --Continue Statin --BP control --If he has evidence of A.fib or embolic source, I would hold full strength anticoagulation until repeat CT stable, wait at least 1 week then reconsider --H/O IVIG use: can lead to hypercoaguability. Would proceed with future treatments very cautiously and would want treating MD to be aware of stroke --? lung CA vs. PNA: workup per primary. This could make him more hypercoaguable as well. 2. Abnormal chest imaging. Follow up imaging as indicated as o/p. Consider new neoplasms. Currently diagnosed with PNA: care per primary 3. PT/OT workup in progress. Rehab vs. Placement 4. Disposition: He will need close follow up with Dr. Beth as an outpatient. Would recommend appointment within 1 month of discharge
[2019-02-21] MEDS: Insulin LISPRO* 1 UNITS UNIT SUBCUT SCH ×4 (09:14→21:03)
[2019-02-21] MEDS: Lisinopril TAB* 10 MG PO SCH (09:15)
[2019-02-21] MEDS: Carvedilol TAB* 25 MG PO SCH ×2 (09:15→16:45)
[2019-02-21] MEDS: Aspirin EC TAB* 81 MG TAB.EC PO SCH (09:15)
[2019-02-21] MEDS: Azithromycin TAB* 250 MG PO SCH (09:16)
[2019-02-21 13:05] LABS: Procalcitonin, S 0.1 ng/mL (<=0.15)
[2019-02-21] MEDS: Atorvastatin* 40 MG TAB PO SCH (16:45)
--- NOTE | 2019-02-21 16:54 | PN ---
Subjective Date of Service: 02/21/19 Interval History: Pt seen and examined. Meds and labs reviewed. CC: N/A ROS: Denied GROSS/dizziness, F/C, N/V, CP, SOB, increased cough, sputum production , abd pain, diarrhea, constipation, dysuria, myalgias, arthralgias, throat pain , and new skin lesions. The rest of the 14 point ROS are unremarkable. PHYSICAL EXAM: GEN APPEARANCE: Awake, not in acute distress HEENT: NC/AT, PERRLA, moist oral mucosa, (-) throat erythema NECK: Soft, supple, (-) cervical LAD, (-)JVD HEART: S1S2 WNL, RRR, No MRG CHEST: CTA, BL, GAE, No W/R/R ABD: Soft, ND/NT, NABS 4x Q EXT: No C/C/E SKIN: Warm to touch PSYCH: No active psychosis, hallucinations, depression, SI/HI Objective Active Medications: Acetylcysteine (Acetylcysteine Cap (Renal)*) 1,200 mg PO BID [facility] Stop: 02/23/19 09:01 Albuterol (Ventolin Hfa Inhaler*) 2 puff INH Q6H PRN PRN Reason: SOB/WHEEZING Aspirin (Aspirin Ec Tab*) 81 mg PO DAILY [facility] Last Admin: 02/21/19 09:15 Dose: 81 mg Atorvastatin Calcium (Lipitor*) 40 mg PO 1700 [facility] Last Admin: 02/21/19 16:45 Dose: 40 mg Azithromycin (Zithromax Tab*) 250 mg PO DAILY [facility] Last Admin: 02/21/19 09:16 Dose: 250 mg Carvedilol (Coreg Tab*) 25 mg PO BID WITH MEALS [facility] Last Admin: 02/21/19 16:45 Dose: 25 mg Dextrose (D50w Syringe 50 Ml*) 12.5 gm IV PUSH .FOR FS < 60 - SS PRN PRN Reason: FS < 60 Ceftriaxone Sodium 1 gm/ (Sodium Chloride) 50 mls @ 200 mls/hr IVPB 0730 [facility] Last Admin: 02/21/19 07:29 Dose: 200 mls/hr Insulin Human Lispro (Humalog*) 0 units SUBCUT ACHS [facility]; Protocol Last Admin: 02/21/19 12:25 Dose: 6 unit Lisinopril (Prinivil Tab*) 10 mg PO DAILY [facility] Last Admin: 02/21/19 09:15 Dose: 10 mg Lorazepam (Ativan Inj*) 0.5 mg IV PUSH Q12H PRN PRN Reason: Anxiety/Agitation Melatonin (Melatonin) 3 mg PO BEDTIME [facility] Last Admin: 02/20/19 20:10 Dose: 3 mg Miscellaneous (Ativan Pyxis Haddad) 1 ea N/A .PYXIS HADDAD PRN PRN Reason: PER PROTOCOL Vital Signs - 8 hr 02/21/19 02/21/19 12:44 14:56 Temperature 97.8 F 97.6 F Pulse Rate 64 58 Respiratory 18 16 Rate Blood Pressure 122/66 151/61 (mmHg) O2 Sat by Pulse 95 99 Oximetry Oxygen Devices in Use Now: None Result Diagrams: 02/21/19 05:35 02/21/19 05:35 Microbiology and Other Data: Microbiology 02/18/19 05:19 Aerobic Blood Culture - Preliminary Blood Venous No Growth Day 1 Anaerobic Blood Culture - Preliminary No Growth Day 1 02/18/19 05:15 Aerobic Blood Culture - Preliminary Blood Venous No Growth Day 1 Anaerobic Blood Culture - Preliminary No Growth Day 1 02/18/19 21:30 Legionella Urinary Antigen - Final Urine Negative Legionella Antigen 02/18/19 21:30 Streptococcus pneumoniae Ag Screen - Final Urine Negative S. pneumo Antigen Assess/Plan/Problems-Billing Assessment: 83M with CAD with recent NTEMI, HTN, COPD, former smoker, presents with sudden onset of recurrent vision loss, embolic strokes: 1. Strokes: etiology/source unclear but consider cardiac source after [place]. --Continue Tele: strongly consider outpatient 30 day or 3 year monitor for A.fib --TTE of good quality, no evidence of thrombus --Continue ASA for now. Given small bleed, holding DAPT. --Continue Statin --BP control --If he has evidence of A.fib or embolic source, I would hold full strength anticoagulation until repeat CT stable, wait at least 1 week then reconsider --H/O IVIG use: can lead to hypercoaguability. Would proceed with future treatments very cautiously and would want treating MD to be aware of stroke --? lung CA vs. PNA: workup per primary. This could make him more hypercoaguable as well. 2. Abnormal chest imaging. Follow up imaging as indicated as o/p. Consider new neoplasms. Currently diagnosed with PNA: care per primary 3. PT/OT workup in progress. Rehab vs. Placement 4. Disposition: He will need close follow up with Dr. Beth as an outpatient. Would recommend appointment within 1 month of discharge - Patient Problems (1) Occipital infarction Current Visit: Yes Status: Acute Code(s): I63.9 - CEREBRAL INFARCTION, UNSPECIFIED SNOMED Code(s): 297038815 Comment: -D/W Dr. Murphy; Will D/C Lovenox given concern for bleed in L. occipital lobe -Improved vision in superior field -Telemetry reviewed; occasional PVCs only; appreciate Dr. Fernandez F/U note; will discuss possibility of event loop recorder prior to D/C with care coordinators? -Appreciate Dr. Murphy input. Likely cardiogenic emboli in setting of recent MS. TTE bubble negative. Also on differential is hypercoagulability from neoplasm or autoimmune disease. - cont ASA and statin - PT/OT - continue on telemetry - likely will need placement (2) Hypertension Current Visit: Yes Status: Acute Code(s): I10 - ESSENTIAL (PRIMARY) HYPERTENSION SNOMED Code(s): 07508556 Comment: -cont lisinopril and carvedilol (3) Pneumonia Current Visit: Yes Status: Acute Code(s): J18.9 - PNEUMONIA, UNSPECIFIED ORGANISM SNOMED Code(s): 037392953 Comment: -CXR consistent with outside hospital, however seems he was not given abx there. Now on CTX/Azithro. If no further fever, WBC, or symptoms, will consider discontinuing antibiotics. - f/u procal -(-)Blood Cx x3 -(-)Urine Ag for S. pneumonia and Legionella -Will obtain CT of chest in AM to further clarify and eval for possible neoplasm ; place pt on 4 doses of NAC for renal protection (4) DVT prophylaxis Current Visit: Yes Status: Acute Code(s): UKQ0934 - SNOMED Code(s): 981851109 Comment: -Not on pharmacologic prophylaxis due to concern for bleed in L. occipital lobe -Will place pt on SCDs Status and Disposition: -For likely rehab placement---will await further PT input -To discuss whether its feasible to send pt out with event-loop recorder? -Will await CT chest w/contrast
[2019-02-21] MEDS: Acetylcysteine CAP (RENAL)* 600 MG PO SCH (20:04)
[2019-02-21] MEDS: Melatonin 3 MG TAB PO SCH (21:03)
[2019-02-22] MEDS: cefTRIAXone(*) 1 GM in NS 0.9% 50 ML* 50 ML IVPB SCH (08:08)
[2019-02-22] MEDS: Lisinopril TAB* 10 MG PO SCH (08:08)
[2019-02-22] MEDS: Carvedilol TAB* 25 MG PO SCH ×2 (08:12→17:07)
[2019-02-22] MEDS: Aspirin EC TAB* 81 MG TAB.EC PO SCH (08:12)
[2019-02-22] MEDS: Azithromycin TAB* 250 MG PO SCH (08:13)
[2019-02-22] MEDS: Acetylcysteine CAP (RENAL)* 600 MG PO SCH ×2 (08:14→20:07)
[2019-02-22] MEDS: Insulin LISPRO* 1 UNITS UNIT SUBCUT SCH ×4 (09:38→20:10)
[2019-02-22] MEDS ORDERED: Iodixanol* (CONTRAST) 320 MG/ML 100 ML SDV IV ONE (09:56)
[2019-02-22] MEDS: Atorvastatin* 40 MG TAB PO SCH (17:07)
--- NOTE | 2019-02-22 18:21 | PN ---
Subjective Date of Service: 02/22/19 Interval History: Pt seen and examined. Meds and labs reviewed. CC: N/A ROS: Denied GROSS/dizziness, F/C, N/V, CP, SOB, increased cough, sputum production , abd pain, diarrhea, constipation, dysuria, myalgias, arthralgias, throat pain , and new skin lesions. The rest of the 14 point ROS are unremarkable. PHYSICAL EXAM: GEN APPEARANCE: Awake, not in acute distress HEENT: NC/AT, PERRLA, moist oral mucosa, (-) throat erythema NECK: Soft, supple, (-) cervical LAD, (-)JVD HEART: S1S2 WNL, RRR, No MRG CHEST: CTA, BL, GAE, No W/R/R ABD: Soft, ND/NT, NABS 4x Q EXT: No C/C/E SKIN: Warm to touch PSYCH: No active psychosis, hallucinations, depression, SI/HI Objective Active Medications: Acetylcysteine (Acetylcysteine Cap (Renal)*) 1,200 mg PO BID [facility] Stop: 02/23/19 09:01 Last Admin: 02/22/19 08:14 Dose: 1,200 mg Albuterol (Ventolin Hfa Inhaler*) 2 puff INH Q6H PRN PRN Reason: SOB/WHEEZING Aspirin (Aspirin Ec Tab*) 81 mg PO DAILY [facility] Last Admin: 02/22/19 08:12 Dose: 81 mg Atorvastatin Calcium (Lipitor*) 40 mg PO 1700 [facility] Last Admin: 02/22/19 17:07 Dose: 40 mg Carvedilol (Coreg Tab*) 25 mg PO BID WITH MEALS [facility] Last Admin: 02/22/19 17:07 Dose: 25 mg Dextrose (D50w Syringe 50 Ml*) 12.5 gm IV PUSH .FOR FS < 60 - SS PRN PRN Reason: FS < 60 Insulin Human Lispro (Humalog*) 0 units SUBCUT ACHS [facility]; Protocol Last Admin: 02/22/19 16:52 Dose: Not Given Lisinopril (Prinivil Tab*) 10 mg PO DAILY [facility] Last Admin: 02/22/19 08:08 Dose: 10 mg Lorazepam (Ativan Inj*) 0.5 mg IV PUSH Q12H PRN PRN Reason: Anxiety/Agitation Melatonin (Melatonin) 3 mg PO BEDTIME [facility] Last Admin: 02/21/19 21:03 Dose: 3 mg Miscellaneous (Ativan Pyxis Lacey) 1 ea N/A .PYXIS LACEY PRN PRN Reason: PER PROTOCOL Vital Signs - 8 hr 02/22/19 02/22/19 11:18 15:12 Temperature 97.6 F 97.2 F Pulse Rate 72 69 Respiratory 18 16 Rate Blood Pressure 149/73 151/63 (mmHg) O2 Sat by Pulse 96 99 Oximetry Oxygen Devices in Use Now: None Result Diagrams: 02/21/19 05:35 02/21/19 05:35 Microbiology and Other Data: Microbiology 02/18/19 05:19 Aerobic Blood Culture - Preliminary Blood Venous No Growth Day 1 Anaerobic Blood Culture - Preliminary No Growth Day 1 02/18/19 05:15 Aerobic Blood Culture - Preliminary Blood Venous No Growth Day 1 Anaerobic Blood Culture - Preliminary No Growth Day 1 02/18/19 21:30 Legionella Urinary Antigen - Final Urine Negative Legionella Antigen 02/18/19 21:30 Streptococcus pneumoniae Ag Screen - Final Urine Negative S. pneumo Antigen Assess/Plan/Problems-Billing Assessment: 83M with CAD with recent NTEMI, HTN, COPD, former smoker, presents with sudden onset of recurrent vision loss, embolic strokes: 1. Strokes: etiology/source unclear but consider cardiac source after AZ. --Continue Tele: strongly consider outpatient 30 day or 3 year monitor for A.fib --TTE of good quality, no evidence of thrombus --Continue ASA for now. Given small bleed, holding DAPT. --Continue Statin --BP control --If he has evidence of A.fib or embolic source, I would hold full strength anticoagulation until repeat CT stable, wait at least 1 week then reconsider --H/O IVIG use: can lead to hypercoaguability. Would proceed with future treatments very cautiously and would want treating MD to be aware of stroke --? lung CA vs. PNA: workup per primary. This could make him more hypercoaguable as well. 2. Abnormal chest imaging. Follow up imaging as indicated as o/p. Consider new neoplasms. Currently diagnosed with PNA: care per primary 3. PT/OT workup in progress. Rehab vs. Placement 4. Disposition: He will need close follow up with Dr. Beth as an outpatient. Would recommend appointment within 1 month of discharge - Patient Problems (1) Pleural mass Current Visit: Yes Status: Acute Code(s): J94.9 - PLEURAL CONDITION, UNSPECIFIED SNOMED Code(s): 046913599 Comment: -Will touch base with Dr. Castro for Consult in AM -?Cause of pts symptoms due to hypercoagulability leading to infarct? (2) Occipital infarction Current Visit: Yes Status: Acute Code(s): I63.9 - CEREBRAL INFARCTION, UNSPECIFIED SNOMED Code(s): 025181236 Comment: -D/W Dr. Murphy; Will D/C Lovenox given concern for bleed in L. occipital lobe -Improved vision in superior field -Telemetry reviewed; occasional PVCs only; appreciate Dr. Fernandez F/U note; will discuss possibility of event loop recorder prior to D/C with care coordinators? -Appreciate Dr. Murphy input. Likely cardiogenic emboli in setting of recent AZ. TTE bubble negative. Also on differential is hypercoagulability from neoplasm or autoimmune disease. - cont ASA and statin - PT/OT - continue on telemetry - likely will need placement (3) Hypertension Current Visit: Yes Status: Acute Code(s): I10 - ESSENTIAL (PRIMARY) HYPERTENSION SNOMED Code(s): 62316361 Comment: -cont lisinopril and carvedilol (4) Pneumonia Current Visit: Yes Status: Acute Code(s): J18.9 - PNEUMONIA, UNSPECIFIED ORGANISM SNOMED Code(s): 256515838 Comment: -CXR consistent with outside hospital, however seems he was not given abx there. Placed on CTX/Azithro. Since no further fever, WBC, or symptoms, will D/ C Abx today especially given CT of Chest more suggestive of malignancy due to presence of pleural based mass - f/u procal -(-)Blood Cx x4 -(-)Urine Ag for S. pneumonia and Legionella (5) DVT prophylaxis Current Visit: Yes Status: Acute Code(s): YUE1861 - SNOMED Code(s): 597933971 Comment: -Not on pharmacologic prophylaxis due to concern for bleed in L. occipital lobe -Will place pt on SCDs Status and Disposition: -For likely rehab placement---will await further PT input -To discuss whether its feasible to send pt out with event-loop recorder? -Will await CT chest w/contrast
[2019-02-22] MEDS: Melatonin 3 MG TAB PO SCH (20:07)
[2019-02-23 06:40] LABS: ABS Basophils 0 10^3/ul (0-0.2); ABS Eosinophils 0.1 10^3/ul (0-0.6); ABS Lymphocytes 1.5 10^3/ul (1.0-4.8); ABS Monocytes 0.7 10^3/ul (0-0.8); ABS Neutrophils 8.1 10^3/ul (1.5-7.7); ABS Nucleated RBC 0 10^3/ul; Hematocrit 37 % (36-46); Hemoglobin 12.9 g/dL (14.0-18.0); Lymphocyte % 14.7 %; Mean Corpuscular HGB Conc 35 g/dL (31-36); Mean Corpuscular Hemoglobin 31 pg (27-31); Mean Corpuscular Volume 88 fL (80-94); Mean Platelet Volume 8.5 fL (7.4-10.4); Nucleated Red Blood Cells % 0; Platelet Count 174 10^3/uL (150-450); Red Blood Count 4.22 10^6 /uL (4.18-5.48); Red Cell Distribution Width 13 % (10.5-15); White Blood Count 10.4 10^3/uL (3.5-10.8)
[2019-02-23 07:00] LABS: Albumin 3.3 g/dL (3.2-5.2); Albumin/Globulin Ratio 1.3 (1-3); BUN/Creatinine Ratio 30.8 (8-20); CRP High Sensitivity 68.29 mg/L (<2.00); Calcium 8.4 mg/dL (8.6-10.3); EGFR African American 141.6 (>60); Globulin 2.6 g/dL (2-4); Magnesium 2.1 mg/dL (1.9-2.7); Phosphorus 2.8 mg/dL (2.5-5.0); Potassium 3.5 mmol/L (3.5-5.0); Total Bilirubin 1.2 mg/dL (0.2-1.0); Total Protein 5.9 g/dL (6.4-8.9)
[2019-02-23 08:12] LABS: Erythrocyte Sed Rate 3 mm/Hr (0-19)
[2019-02-23] MEDS ORDERED: hydrALAZINE IV* 20 MG/ML VIAL IV SLOW PU PRN (08:43)
[2019-02-23] MEDS: Lisinopril TAB* 10 MG PO SCH (08:51)
[2019-02-23] MEDS: Carvedilol TAB* 25 MG PO SCH ×2 (08:51→17:19)
[2019-02-23] MEDS: Aspirin EC TAB* 81 MG TAB.EC PO SCH (08:51)
[2019-02-23] MEDS: Acetylcysteine CAP (RENAL)* 600 MG PO SCH (08:52)
[2019-02-23] MEDS: Insulin LISPRO* 1 UNITS UNIT SUBCUT SCH ×4 (08:52→21:27)
--- NOTE | 2019-02-23 15:22 | PN ---
Subjective Date of Service: 02/23/19 Interval History: Pt seen and examined. Meds and labs reviewed. CC: N/A ROS: Denied GROSS/dizziness, F/C, N/V, CP, SOB, increased cough, sputum production , abd pain, diarrhea, constipation, dysuria, myalgias, arthralgias, throat pain , and new skin lesions. The rest of the 14 point ROS are unremarkable. PHYSICAL EXAM: GEN APPEARANCE: Awake, not in acute distress HEENT: NC/AT, PERRLA, moist oral mucosa, (-) throat erythema NECK: Soft, supple, (-) cervical LAD, (-)JVD HEART: S1S2 WNL, RRR, No MRG CHEST: CTA, BL, GAE, No W/R/R ABD: Soft, ND/NT, NABS 4x Q EXT: No C/C/E SKIN: Warm to touch PSYCH: No active psychosis, hallucinations, depression, SI/HI Objective Active Medications: Albuterol (Ventolin Hfa Inhaler*) 2 puff INH Q6H PRN PRN Reason: SOB/WHEEZING Aspirin (Aspirin Ec Tab*) 81 mg PO DAILY [facility] Last Admin: 02/23/19 08:51 Dose: 81 mg Atorvastatin Calcium (Lipitor*) 40 mg PO 1700 [facility] Last Admin: 02/22/19 17:07 Dose: 40 mg Carvedilol (Coreg Tab*) 25 mg PO BID WITH MEALS [facility] Last Admin: 02/23/19 08:51 Dose: 25 mg Dextrose (D50w Syringe 50 Ml*) 12.5 gm IV PUSH .FOR FS < 60 - SS PRN PRN Reason: FS < 60 Hydralazine HCl (Apresoline Iv*) 10 mg IV SLOW PU Q6H PRN PRN Reason: HTN Insulin Human Lispro (Humalog*) 0 units SUBCUT ACHS [facility]; Protocol Last Admin: 02/23/19 12:33 Dose: 2 unit Lisinopril (Prinivil Tab*) 40 mg PO DAILY [facility] Last Admin: 02/23/19 08:51 Dose: 40 mg Lorazepam (Ativan Inj*) 0.5 mg IV PUSH Q12H PRN PRN Reason: Anxiety/Agitation Melatonin (Melatonin) 3 mg PO BEDTIME [facility] Last Admin: 02/22/19 20:07 Dose: 3 mg Miscellaneous (Ativan Pyxis Lacey) 1 ea N/A .PYXIS LACEY PRN PRN Reason: PER PROTOCOL Vital Signs - 8 hr 02/23/19 02/23/19 02/23/19 07:30 08:00 08:28 Temperature 97.8 F Pulse Rate 67 Respiratory 18 17 Rate Blood Pressure 174/83 176/78 (mmHg) O2 Sat by Pulse 96 Oximetry 02/23/19 14:25 Temperature 97.6 F Pulse Rate 64 Respiratory Rate Blood Pressure 154/62 (mmHg) O2 Sat by Pulse 95 Oximetry Oxygen Devices in Use Now: None Result Diagrams: 02/23/19 06:03 02/23/19 06:03 Microbiology and Other Data: Microbiology 02/18/19 05:19 Aerobic Blood Culture - Preliminary Blood Venous No Growth Day 1 Anaerobic Blood Culture - Preliminary No Growth Day 1 02/18/19 05:15 Aerobic Blood Culture - Preliminary Blood Venous No Growth Day 1 Anaerobic Blood Culture - Preliminary No Growth Day 1 02/18/19 21:30 Legionella Urinary Antigen - Final Urine Negative Legionella Antigen 02/18/19 21:30 Streptococcus pneumoniae Ag Screen - Final Urine Negative S. pneumo Antigen Assess/Plan/Problems-Billing Assessment: 83M with CAD with recent NTEMI, HTN, COPD, former smoker, presents with sudden onset of recurrent vision loss, embolic strokes: 1. Strokes: etiology/source unclear but consider cardiac source after [place]. --Continue Tele: strongly consider outpatient 30 day or 3 year monitor for A.fib --TTE of good quality, no evidence of thrombus --Continue ASA for now. Given small bleed, holding DAPT. --Continue Statin --BP control --If he has evidence of A.fib or embolic source, I would hold full strength anticoagulation until repeat CT stable, wait at least 1 week then reconsider --H/O IVIG use: can lead to hypercoaguability. Would proceed with future treatments very cautiously and would want treating MD to be aware of stroke --? lung CA vs. PNA: workup per primary. This could make him more hypercoaguable as well. 2. Abnormal chest imaging. Follow up imaging as indicated as o/p. Consider new neoplasms. Currently diagnosed with PNA: care per primary 3. PT/OT workup in progress. Rehab vs. Placement 4. Disposition: He will need close follow up with Dr. Beth as an outpatient. Would recommend appointment within 1 month of discharge - Patient Problems (1) Pleural mass Current Visit: Yes Status: Acute Code(s): J94.9 - PLEURAL CONDITION, UNSPECIFIED SNOMED Code(s): 780817072 Comment: -D/W Dr. Castro and will await her evaluation and recommendations -?Cause of pts symptoms due to hypercoagulability leading to infarct? (2) Occipital infarction Current Visit: Yes Status: Acute Code(s): I63.9 - CEREBRAL INFARCTION, UNSPECIFIED SNOMED Code(s): 161921273 Comment: -D/W Dr. Murphy; Will D/C Lovenox given concern for bleed in L. occipital lobe -Improved vision in superior field -Telemetry reviewed; occasional PVCs only; appreciate Dr. Fernandez F/U note; will discuss possibility of event loop recorder prior to D/C with care coordinators? -Appreciate Dr. Murphy input. Likely cardiogenic emboli in setting of recent DC. TTE bubble negative. Also on differential is hypercoagulability from neoplasm or autoimmune disease. - cont ASA and statin - PT/OT - D/C telemetry (3) Infiltrate noted on imaging study Current Visit: Yes Status: Acute Code(s): R93.89 - ABNORMAL FINDINGS ON DX IMAGING OF OTH BODY STRUCTURES SNOMED Code(s): 962093193 Comment: -Likely due pleural mass being read as a possible PNA in CXR -CXR consistent with outside hospital, however seems he was not given abx there. Placed on CTX/Azithro initially, w/c was discontinued today - f/u procal -(-)Blood Cx x4 -(-)Urine Ag for S. pneumonia and Legionella (4) Hypertension Current Visit: Yes Status: Acute Code(s): I10 - ESSENTIAL (PRIMARY) HYPERTENSION SNOMED Code(s): 20838533 Comment: -Uncontrolled -Increased Lisinopril to 40 mg and added PRN Hydralazine -Continue carvedilol -Continue watchful waiting (5) DVT prophylaxis Current Visit: Yes Status: Acute Code(s): [id number] - SNOMED Code(s): 669932793 Comment: -Not on pharmacologic prophylaxis due to concern for bleed in L. occipital lobe -Continue SCDs Status and Disposition: -Will await Dr. Conte reccomendations -For possible D/C to [facility] in AM
[2019-02-23] MEDS: Atorvastatin* 40 MG TAB PO SCH (17:18)
[2019-02-23] MEDS: Melatonin 3 MG TAB PO SCH (21:27)
--- NOTE | 2019-02-23 22:28 | CONS ---
PULMONARY CONSULTATION REPORT: DATE OF CONSULT: 02/23/19 CONSULTATION REQUESTED BY: Dr. Antione Campbell. REASON FOR CONSULT: Evaluation of abnormal CT chest. HISTORY OF PRESENT ILLNESS: The patient is an 83-year-old male with a history of hypertension, osteoarthritis, COPD, recent heart attack. The patient was admitted for evaluation of sudden episode of loss of vision bilaterally. The patient was admitted to [facility] about a week ago for heart attack. He had episode of sudden onset of bilateral complete blindness while he was still in the hospital, resolved after 30 minutes. The patient is a poor historian and he is unable to provide good history and comprehend things from underlying dementia. The patient has been saying throughout the interview that he is wanting to go home and is being kept against his will. The patient did not seem to be comprehending the information well. The patient reported that after discharge from the hospital, he felt sudden bilateral blindness that resolved again in an hour. He saw his primary care provider, Dr. Elodia Castillo, who advised to be evaluated in the emergency room. He was seen in [facility], had a CT head, which was concerning for left posterior medial occipital infarction versus mass and was referred to [facility] for further evaluation. He received Solu-Medrol 125 and clonidine 0.2 mg while at [facility]. The patient was noted to be having NIH stroke scale of 0, but there was a concern for basilar infarction, so head CTA was obtained, which showed embolic occlusion in P1 segment of left posterior cerebral artery as well as P2 short segment occlusion was seen. He was admitted for medical management. He was started on anticoagulation with Eliquis given concern for thrombotic phenomenon and was advised to have aspirin and Plavix held per urology recommendations. Cardiac source was considered to be the etiology for his stroke. No arrhythmia was documented during the hospitalization. No evidence of thrombus noted on TTE. He was seen in followup by neurology. Given hemorrhagic component to the left occipital lobe, anticoagulation was held and was started on aspirin. Eliquis was held. He continued to have PVCs on telemetry. The patient reports that his vision is improved; however, still has some blurry vision. His chest x-ray on admission showed abnormality in the right upper lobe, with differential being pneumonia. He was also found to have chronic interstitial changes in the lungs. The patient subsequently underwent CT chest for further evaluation of this abnormality. I have personally reviewed CT of the chest. The patient with significant emphysematous changes. The patient also with bronchiectasis. The patient with mild fibrotic changes. The patient with multiple subcentimeter pulmonary nodules and some that are bigger in size. The patient with evidence of mediastinal and hilar lymph node prominence. He had a small right pleural effusion. He was noted to have a pleural- based mass in the right lower lobe measuring 2 cm. Multiple other pulmonary nodules with the largest one measuring 0.8 were also seen. Pulmonary consultation was requested for evaluation of the same. The patient, as mentioned above, is a very poor historian and kept saying throughout the process of interview that he was held against his will. He mentioned that he understands the risks with things getting worse and the possibility of cancer being in his lungs and would rather go home and peacefully. He denies shortness of breath. He does report history of recurrent bronchitis in the past. The patient reports that he quit smoking 20 years ago, was smoking 40 to 50 years about a pack per day. Denies any shortness of breath currently. Denies chest pain or cough. He denies any recent weight loss. PAST MEDICAL HISTORY: 1. Hypertension. 2. Osteoarthritis. 3. ITP in 2017, status post IVIG. 4. Hyperlipidemia. 5. COPD. 6. Recent heart attack at [facility]. MEDICATIONS: 1. Lipitor. 2. Aspirin. 3. Plavix. 4. Carvedilol. 5. Metformin. 6. Lisinopril. ALLERGIES: No known drug allergies. FAMILY HISTORY: Mother of heart disease. SOCIAL HISTORY: Former smoker for 40 to 50 years, quit 20 years ago, smoked 1 pack per day. No drug abuse. He is a former heavy drinker, quit 20 to 30 years ago. He is a former marine. He lives alone at home. REVIEW OF SYSTEMS: All 14 systems reviewed as per HPI. PHYSICAL EXAM: The patient in bed, in no apparent distress. Vital signs: Temperature 97.6, pulse 64 beats per minute, respiratory rate 17 per minute, O2 sat 95% on room air. Blood pressure 154/62. HEENT: Pupils equal, reactive to light. Mucous membranes moist. Lungs: Diminished air entry, no significant wheeze. Cardiovascular: S1, S2 present. Abdomen: Soft, nontender, nondistended. Bowel sounds present. Extremities: Normal range of motion. Skin: Evidence of lipoma posteriorly on the left back. Neuro: Alert, awake, no focal deficits. The patient reports blurry vision. DIAGNOSTIC STUDIES/LAB DATA: Laboratory Exam: WBC count 10.4, hemoglobin 12.9 , hematocrit 37, platelet count 174. Sodium 138, potassium 3.5, chloride 105, bicarb 27, BUN 20, creatinine 0.65. Chest x-ray and CTA of chest as described above in HPI. IMPRESSION AND RECOMMENDATION: 83-year-old male, a former smoker with significant smoking history, admitted for cerebrovascular accident, was found to have multiple pulmonary nodules with a large mass lesion in the right lower lobe in subpleural location. Given significant smoking history, findings suggestive of possible malignancy. The patient is a poor historian and also is not able to understand his clinical condition. The patient reports that he does not want to evaluate this further, said he understands it could be cancer. If the patient is agreeable to the procedure, he would benefit from CT-guided biopsy of the right lower lobe lesion. He is at risk for anesthesia given recent cerebrovascular accident even though he has lymph nodes which could be evaluated through bronchoscopy. The patient is a poor candidate anyway for surgery, so if he wanted to be treated for his cancer in the future, that could be achieved through radiation. He is definitely high risk for anesthesia, so I would think the patient would benefit from CT-guided biopsy than bronchoscopy at this time. Thank you for allowing me to participate in the care of your patient. Will follow up with you. The above recommendation was discussed with Dr. Campbell. [id number]/[facility] #: [id number] ANN
[2019-02-24] MEDS: Lisinopril TAB* 10 MG PO SCH (08:25)
[2019-02-24] MEDS: Aspirin EC TAB* 81 MG TAB.EC PO SCH (08:25)
[2019-02-24] MEDS: Insulin LISPRO* 1 UNITS UNIT SUBCUT SCH ×2 (08:25→13:59)
[2019-02-24] MEDS: Carvedilol TAB* 25 MG PO SCH (08:25)
[2019-02-24 11:09] VITALS: BP 139/68
--- NOTE | 2019-02-24 15:55 | DS ---
DISCHARGE SUMMARY: DATE OF ADMISSION: 02/17/19 DATE OF DISCHARGE: 02/24/19 ADMITTING PROVIDER: Elroy Jordan MD. ATTENDING PHYSICIAN ON THE DAY OF DISCHARGE: Elroy Jordan MD. PRIMARY CARE PROVIDER: Dr. Elodia Castillo. CHIEF COMPLAINT: Second episode of sudden onset of bilateral blindness. PRINCIPAL DIAGNOSES: 1. Shower emboli causing cerebrovascular accident in his right posterior parietal and medial left occipital lobes. 2. Right lower lobe pleural lung mass and multiple lung nodules concerning for possible malignancy. HISTORY OF PRESENT ILLNESS AND HOSPITAL COURSE: Carl Roche is an 83-year- old male with past medical history of hypertension, osteoarthritis, ITP in 2017 , hyperlipidemia, COPD, recent NSTEMI at [facility] with negative nuclear stress test. He was a poor historian, but reported that he had bilateral complete vision loss both at [facility] and then morning of admission. He was admitted to the hospital. Dr. Beth, Neurology, consulted on the case. He had CTA of his head, which showed embolic occlusion within the P1 segment of the left posterior cerebral artery as well as P2 short segment occlusion. He eventually had an MRI of his brain, which showed focal cortical infarction involving the right posterior parietal lobe and medial left occipital lobe. There were additional scattered foci of hyperintensities in the subcortical white matter bilaterally favoring shower emboli from the central source. He had a transthoracic echocardiogram that showed ejection fraction of 55 to 60%. No consistent evidence of diastolic dysfunction. No PFO on bubble study. No significant valvular regurgitation. No note of thrombus or vegetations noted. He initially had a chest x-ray as well in the emergency room, which demonstrated right upper lobe infiltrate without any real symptoms of shortness of breath. He did have initially a CRP on hospital day #2 of 44 and we had him started on ceftriaxone and azithromycin for potential community- required pneumonia. Eventually, he had CT chest on 02/22/19, which showed emphysema and pulmonary fibrotic changes and 2 x 1 cm pleural base mass at the right lower lobe with multiple pulmonary parenchymal nodules bilaterally with hilar mediastinal lymphadenopathy concerning for metastatic neoplasm. Recommendation for consideration and correlation with PET CT and/or tissue sampling, small right pleural effusion, small pericardial effusion. Dr. Castro of Pulmonology was consulted and recommended that he would not be considered safe for anesthesia and recommended the ultrasound versus CT-guided biopsy. Dr. Villafuerte was consulted on the case. The patient was resistant to biopsy and was convinced by Stanford Cruz, his friend, to potentially do it if it could happen right away the day prior to admission, obviously that could not immediately happen and by morning of admission, he then again started to ____ that he wanted to work this mass up and that if it was a lung cancer, he would rather just " in peace." He is being discharged with further reevaluation at [facility] status. Dr. Villafuerte also had concern that he would not be a good candidate for a CT-guided biopsy given noncompliance with breathholding was of concern. He was initially started on Eliquis, but that was stopped on hospital day #2 and he was just continued on aspirin 81 mg daily. Plavix was stopped. This was because there was suggestion of a small bleed. Statin and beta-shakira were continued. He was recommended to get a potential Holter monitor for 30 days versus a loop recorder for 3 years to rule out atrial fibrillation and potentially avoid future IVIGs if necessary for his ITP that were to recur. MEDICATIONS ON DISCHARGE: Include: 1. Coreg 25 mg p.o. b.i.d. 2. Lisinopril 10 mg daily. 3. Aspirin 81 mg daily. 4. Atorvastatin 40 mg daily. 5. Metformin 500 mg p.o. b.i.d. His Plavix was now stopped. CONDITION: Guarded. DISPOSITION: [facility]. FOLLOWUP: The patient is to follow up with Dr. Castillo for consideration for further PET scan workup if his mind changes about getting worked up for potential malignancy. He will follow up with Dr. Beth or other neurologist if he is predisposed. DIET: Heart healthy, unchanged. TIME SPENT ON DISCHARGE: Thirty five minutes. [id number]/[facility] #: [id number] [facility]
== END 2019-02-24 14:57 | disposition swing bed (61) | DRG 64 ==
LOC: ED 16:46 → MEDTELE 20:54
PROVIDERS: ADMIT Internal Medicine; ATTEND Internal Medicine
DX: I63.89 Other cerebral infarction (principal); I61.1 Nontraumatic intracerebral hemorrhage in hemisphere, cortical; C34.31 Malignant neoplasm of lower lobe, right bronchus or lung; E11.9 Type 2 diabetes mellitus without complications; I10 Essential (primary) hypertension; M19.012 Primary osteoarthritis, left shoulder; M19.011 Primary osteoarthritis, right shoulder; I44.0 Atrioventricular block, first degree; R29.700 NIHSS score 0; E78.5 Hyperlipidemia, unspecified; Z66 Do not resuscitate; I25.10 Atherosclerotic heart disease of native coronary artery without angina pectoris; J43.9 Emphysema, unspecified; I65.22 Occlusion and stenosis of left carotid artery; I35.1 Nonrheumatic aortic (valve) insufficiency; I49.3 Ventricular premature depolarization; H54.3 Unqualified visual loss, both eyes; R59.0 Localized enlarged lymph nodes; J47.9 Bronchiectasis, uncomplicated; I25.2 Old myocardial infarction; Z85.828 Personal history of other malignant neoplasm of skin; Z82.49 Family history of ischemic heart disease and other diseases of the circulatory system; Z72.89 Other problems related to lifestyle; Z87.891 Personal history of nicotine dependence; Z98.42 Cataract extraction status, left eye; Z98.41 Cataract extraction status, right eye; Z79.82 Long term (current) use of aspirin; Z79.84 Long term (current) use of oral hypoglycemic drugs; Z79.01 Long term (current) use of anticoagulants
CPT/HCPCS: 36415; 70496; 70498; 70551; 71045; 71260; 76604; 80048; 80053; 80061; 80307; 80320; 81003; 83036; 83605; 83735; 84100; 84145; 84443; 84484; 85025; 85027; 85610; 85652; 85730; 86038; 86140; 86141; 87040; 87899; 93005; 93306; 99284; A9270-GY; G0480; G8978-GP-CJ; G8979-GP-CH; J0456; J0610; J0696; J1650; Q9967